=== PATIENT | male | born 1955 | race Asian ===

== ENCOUNTER 2019-06-30 13:40 | Outpatient (CLI) | payer OTHER, SELFPAY | END 2019-06-30 13:41 | disposition home or self-care (01) | DX: Z12.5 Encounter for screening for malignant neoplasm of prostate (principal) | CPT/HCPCS: 36415; 84153; G0103 ==

== ENCOUNTER 2019-10-20 15:40 | Outpatient (CLI) | payer MEDICARE, OTHER, SELFPAY ==
--- NOTE | 2019-10-20 | ECG_ITS ---
Measurements Intervals [place] Rate: 55 P: 67 CA: 158 QRS: 55 QRSD: 86 T: 12 QT: 398 QTc: 384 Interpretive Statements SINUS BRADYCARDIA BORDERLINE ECG Electronically Signed On 10-20-2019 16:54:32 CDT by Kj Killian D.O.
[2019-10-20 16:28] LABS: Albumin Level 4.6 g/dL (3.5-5.1); Estimated Glomerular Filt Rate > 60
== END 2019-10-20 15:41 | disposition home or self-care (01) ==
PROVIDERS: Visit Provider Orthopaedic Surgery
DX: M17.11 Unilateral primary osteoarthritis, right knee (principal); Z01.812 Encounter for preprocedural laboratory examination; R94.31 Abnormal electrocardiogram [ECG] [EKG]
CPT/HCPCS: 36415; 82040; 82565; 93005

== ENCOUNTER 2019-10-31 13:46 | Outpatient (CLI) | payer MEDICARE, OTHER, SELFPAY ==
[2019-10-31 15:07] LABS: Basophils Percent Auto 0.6 % (0.2-1.2); Eosinophils Absolute Auto 0.1 K/mm3 (0-0.3); Eosinophils Percent Auto 1.5 % (0-4.4); Hematocrit 44.2 % (42.0-52.0); Hemoglobin 14.7 g/dL (14.0-18.0); Immature Granulocyte Absolute 0.05 K/mm3 (0.00-0.031); Immature Granulocyte Percent A 0.7 % (0-0.5); Lymphocytes Absolute Auto 2.13 K/mm3 (0.9-3.2); Lymphocytes Percent Auto 29.3 % (18.3-44.2); Mean Corpuscular HGB Conc 33.3 g/dl (32-36); Mean Corpuscular Volume 90.2 fl (80-100); Mean Platelet Volume 9.2 fl (7.4-10.4); Monocytes Absolute Auto 0.6 K/mm3 (0.1-0.6); Monocytes Percent Auto 8.4 % (2.6-8.5); Neutrophils Absolute Auto 4.3 K/mm3 (1.3-6.7); Neutrophils Percent Auto 59.5 % (45.5-73.1); Platelet Count Result 310 k/mm3 (150-375); Red Cell Distribution Width 13.4 % (11.5-14.5); White Blood Count 7.3 K/mm3 (4.5-10.0)
[2019-10-31 15:18] LABS: Glucose 89 mg/dL (75-110)
[2019-10-31 15:26] LABS: Hemoglobin A1C 5.2 % (<5.7)
[2019-10-31 16:14] LABS: Urine Cotinine NEGATIVE
== END 2019-10-31 13:47 | disposition home or self-care (01) ==
PROVIDERS: Visit Provider Orthopaedic Surgery
DX: M17.12 Unilateral primary osteoarthritis, left knee (principal)
CPT/HCPCS: 36415; 80307; 82947; 83036; 85025; 87081

== ENCOUNTER 2019-11-11 00:33 | Outpatient (CLI) | payer MEDICARE, OTHER, SELFPAY ==
[2019-11-11 18:11] LABS: SARS-CoV-2 RNA PCR Negative
== END 2019-11-11 00:34 | disposition home or self-care (01) ==
LOC: ANHCOVIDDT 00:33
PROVIDERS: Visit Provider Orthopaedic Surgery
DX: Z01.812 Encounter for preprocedural laboratory examination (principal); Z11.59 Encounter for screening for other viral diseases
CPT/HCPCS: 87635; C9803; U0003

== ENCOUNTER 2019-11-14 01:53 | Day surgery (SDC) | payer MEDICARE, OTHER, SELFPAY ==
[2019-10-31 14:04] VITALS: BP 180/93; PULSE 57; RESP 16; TEMP 37; O2SAT 98; BMI 29.2
--- NOTE | 2019-10-31 15:09 | PC.NURSE ---
B/P 180/93 AND 187/99 NOTED. EKG AND MED HX REVIEWED WITH DR ROMERO. NO FURTHER ORDERS RECEIVED BUT WOULD LIKE PT TO CONTACT PCP FOR ELEVATED BP PRIOR TO SURGERY. PT INSTRUCTED TO CONTACT PCP, HE RELAYS UNDERSTANDING AND STATES HE WILL CALL [facility].
[2019-11-14] VITALS (17 sets, daily range): BP systolic 75–162; BP diastolic 50–90; PULSE 56–79; RESP 10–20; TEMP 36.2–36.6; O2SAT 97–100; BMI 28.9
--- NOTE | ~2019-11-14 | XR_ITS ---
EXAMINATION: XR knee LT 2V DATE: 11/14/2019 12:43 INDICATION: Total left knee arthroplasty. Postop. TECHNIQUE: 2 views of left knee were obtained. COMPARISON: Left knee radiographs 10/20/2019 FINDINGS: There is a total left knee arthroplasty with patellar resurfacing in near-anatomic alignmen t. No fracture. There is gas in the knee joint and soft tissues, consistent with recent surgery. IMPRESSION: 1. Total left knee arthroplasty in near-anatomic alignment. Reviewed, dictated and finalized at location B.
[2019-11-14] MEDS: ACETAMINOPHEN 500 MG TABLET 1000 MG PO (09:10)
[2019-11-14] MEDS: LACTATED RINGERS 1,000 ML 30 ML IV CONT ×4 (09:25→13:35)
[2019-11-14] MEDS: KETOROLAC 15 MG/ML VIAL (*BKC) IV PUSH (09:29)
[2019-11-14] MEDS: TRANEXAMIC ACID 1,000MG/ISO100 1,000 MG/100 ML BAG 200 MG IVPB (09:30)
--- NOTE | 2019-11-14 10:00 | WPDHPUPDATE1 ---
History and Physical Update Update Date/Time: 11/14/19 10:00 History and Physical has been reviewed, including an updated exam of the patient. There are NO changes in the patient's condition. Risks, benefits, and alternatives have been discussed and questions answered. Patient agrees to proceed with procedure.
--- NOTE | 2019-11-14 10:01 | WPDANESEPPF ---
Anes - Initial Pre Proc Eval Procedure: Operation Date: 11/14/19 11:00 Proposed Procedures p Left Total Knee Arthroplasty - Valentin Bell MD Date/Time: 11/14/19 10:01 Surgeon: Valentin Bell MD Pre Op Diagnosis: OA Left Knee Patient Data Age: 64 Gender: M Height: 5 ft 6 in Weight: 81.5 kg Last Vital Signs Temp 36.5 C 11/14/19 09:02 Pulse 60 11/14/19 09:02 Resp 16 11/14/19 09:02 BP 148/72 H 11/14/19 09:02 Pulse Ox 100 11/14/19 09:02 Allergies Allergy/AdvReac Type Severity Reaction Status Date / Time No Known Allergies Allergy Verified 10/31/19 14:03 Home Medications Medication Instructions Recorded Confirmed Type amlodipine 5 mg PO HS 10/31/19 10/31/19 History Patient hx anesthesia problems: post op nausea/vomiting Family hx anesthesia problems: none PMFSH Past Medical History Medical History HTN (hypertension) Surgical History Surgical History History of arthroscopy of left knee History of neck surgery History of prostate surgery (~2017) Social History Social History Smoking status: Never smoker Alcohol intake: current Substance use: never Living arrangements: with family Gender identity (if verbalized by the patient): Male Spiritual care concerns: No Anes - Eval Final PreProcedure Day of Procedure 11/14/19 10:01 Patient weight: overweight Heart: regular rate and rhythm Lungs: clear to auscultation Airway: Mallampati scale class II Neurological: alert and oriented Last oral intake: >/= 8 hours ASA classification: II Emergent: no Anesthetic plan: proceed Anesthesia type and monitoring: general LMA and standard monitoring Informed Consent: The patient's anesthetic plan and its attendant risks and benefits were discussed with the patient/family/POA. Questions were solicited and answers provided to the satisfaction of the patient/family/POA.
[2019-11-14] MEDS: SCOPOLAMINE 1.5 MG PATCH TRANSDERM (10:05)
--- NOTE | 2019-11-14 10:18 | WPDANESPNB ---
Anes - Peripheral Nerve Block Date/Time: 11/14/19 10:18 I have discussed with the patient/family/POA the placement of a peripheral nerve block for post-operative pain management, including associated risks, benefits, complications, and side effects. Alternative methods of post-operative analgesia were detailed. Questions were solicited and answers provided to the satisfaction of the patient/family/POA. Time-Out: A pre-procedural Time-Out was completed immediately before starting the procedure and confirmed: Patient Identification, Site, Procedure, Patient Position and the Availability of Requisite Equipment. Clinical Indications: Acute post-operative pain management requested by the operative surgeon. Nerve Block Insertion Note Anes-nerve block: adductor canal left Patient position: supine Skin prep: chlorhexidine Needle: 22 gauge, stimulating, insulated echogenic needle. Needle length: 80 mm Technique: ultrasound Technique comment: mid 2mg,[id number] Injectate: bupivacaine 0.5% with epi 5 mcg/ml (30ml) and dexamethasone (mg) (4) Observations: tolerated well Complications: none Procedure start time:: 1007 Procedure end time:: 1014
[2019-11-14] MEDS: ceFAZolin 2 GM/D5W 50 ML 2 GM/50 ML BAG IVPB (10:34)
--- NOTE | 2019-11-14 13:54 | SUR.PHASEI ---
[id number] sbar faxed floor notified
--- NOTE | 2019-11-14 14:50 | ADMGEN ---
This patient, Yahir Wei, was admitted to Medical Room 253-01. Patient/family oriented to hospital policies and general routines including ID bracelet, bed and alarms, visiting hours, pain management, procedures, bathroom and other care routines, personal items, smoking policy, room service/diet, and visiting hours. Valuables list has been completed. Information on how to activate the Rapid Response Team has been discussed. Patient/Family are encouraged to report perceived risks to care and to ask questions if they do not understand what they are told or what they should do.
--- NOTE | 2019-11-14 15:42 | PM.PROC ---
Procedure Note - Detailed Date of procedure: 11/14/19 Pre-op diagnosis: OA Left Knee Post-op diagnosis: same Procedure performed: Total knee arthroplasty, left Description of procedure: Bone quality excellent. The femur was downsized 1.5mm. 2 degrees external rotation after flexion gap check. Conservative distal femoral cut. A slight PCL release taken. A minimal medial release initially with a mild needle release at the final balance check. Implants: [place] [employer] size 5 press-fit femur, size 5 cemented low-profile tibia, 11 mm polyethylene insert, 35 mm asymmetric metal backed patellar component. Anesthesia: GETA and regional (subsartorial nerve block) Surgeon: Valentin Bell MD Estimated blood loss (mL): 100 Drains: No Complications: None Condition: stable Disposition: PACU Findings: OPERATIVE DETAILS: The patient was given a nerve block preoperatively, and then brought to the operating room. A general anesthetic was administered. The leg was prepped and draped in the usual sterile fashion. The limb was elevated and the tourniquet inflated to 300 mmHg during initial exposure, and cementation. A longitudinal incision was created along the medial border of the patella and patellar tendon, and a minimally invasive optimized mid-vastus approach to the knee was performed. A minimal medial release was taken. The knee was then flexed. The osteophytes were carefully removed. The intramedullary guide was placed in the femoral canal. The distal femoral resection was then taken with the oscillating saw. The collateral ligaments were carefully protected. The tibia was carefully exposed. The jig was applied, and the proximal tibia was resected according to preoperative plan. The knee was balanced in extension. Appropriate releases were taken where needed. The anterior cruciate ligament and meniscal remnants were removed. The posterior cruciate ligament was preserved. The patella was measured. Patellar resection was carried out with the oscillating saw. The lug holes drilled. The femur was sized and rotation assessed using a combination of gap balancing, posterior referencing, and the AP axis. The 4 in 1 cutting block was used to finish the femoral cuts after equal gaps were assured. The lug holes were drilled. The osteophytes were carefully removed from the back of the knee. The knee was copiously irrigated with antibiotic solution periodically throughout the procedure. The meniscal remnants were removed. The spacer block was used to confirm equal flexion and extension gaps. Further releases were performed as needed. The tibia was sized and broached. The bony surfaces were prepared for cementing with pulsatile lavage. The real tibial component was cemented into position followed by press fitting the femoral component. Excess cement was carefully removed. The patella component was press-fit. Patellar tracking was carefully assessed. No additional releases were required. The wound was closed with #1 Vycril suture, #2 Quill suture, 0-Quill suture, and 2-0 Quill suture followed by Steri-Strips. A sterile bulky dressing was applied. Meticulous hemostasis was maintained throughout the procedure. There were no complications. The patient was extubated and brought to the recovery room in stable condition after the application of sterile dressing with Klaus bandage.
[2019-11-14] MEDS: DOCUSATE SODIUM 100 MG CAPSULE PO (18:23)
[2019-11-14] MEDS: MELOXICAM 7.5 MG TABLET PO (18:23)
[2019-11-14] MEDS: ASPIRIN 81 MG ENTERIC TABLET PO (18:23)
[2019-11-14] MEDS: amLODIPine BESYLATE 5 MG TABLET PO (20:30)
[2019-11-15 02:00] VITALS: BP 136/73; PULSE 56; RESP 20; TEMP 36.7; O2SAT 98
[2019-11-15 05:22] LABS: Basophils Percent Auto 0.2 % (0.2-1.2); Hematocrit 35.5 % (42.0-52.0); Immature Granulocyte Absolute 0.06 K/mm3 (0.00-0.031); Immature Granulocyte Percent A 0.4 % (0-0.5); Lymphocytes Absolute Auto 1.18 K/mm3 (0.9-3.2); Lymphocytes Percent Auto 8.1 % (18.3-44.2); Mean Corpuscular HGB Conc 33.8 g/dl (32-36); Mean Corpuscular Hemoglobin 30.1 pg (26-34); Mean Platelet Volume 9.6 fl (7.4-10.4); Monocytes Absolute Auto 1.1 K/mm3 (0.1-0.6); Monocytes Percent Auto 7.3 % (2.6-8.5); Neutrophils Absolute Auto 12.2 K/mm3 (1.3-6.7); Platelet Count Result 237 k/mm3 (150-375); Red Blood Count 3.99 M/mm3 (4.6-6.20); Red Cell Distribution Width 13.2 % (11.5-14.5); White Blood Count 14.5 K/mm3 (4.5-10.0)
[2019-11-15 05:27] LABS: Anion Gap 6 mmol/L (8-16); Blood Urea Nitrogen 15 mg/dL (9-20); Calcium 8.3 mg/dL (8.4-10.2); Carbon Dioxide 26 mmol/L (22-30); Chloride 103 mmol/L (98-107); Estimated CRCL calculation 72 ml/min; Estimated Glomerular Filt Rate > 60; Glucose 125 mg/dL (75-110); Potassium 4.2 mmol/L (3.4-5.0); Sodium 135 mmol/L (137-145)
[2019-11-15 06:00] VITALS: BP 107/50; PULSE 61; RESP 20; TEMP 36.8; O2SAT 99
--- NOTE | 2019-11-15 08:17 | P.PNAN_ITS ---
Anes - Prog Note Post-Op Date/Time: 11/15/19 08:17 Cardiovascular status: normal Respiratory status: normal Airway patency: baseline Mental status: baseline Post-Op hydration status: normal Vital Signs: Last Vital Signs Temp 36.8 C 11/15/19 06:00 Pulse 61 11/15/19 06:00 Resp 20 11/15/19 06:00 BP 107/50 L 11/15/19 06:00 Pulse Ox 99 11/15/19 06:00 Pain Score (VAS): 0/10. Patient resting in bed at time of assessment, appears comfortable. PCT at bedside. I/O: Intake & Output 11/14/19 11/15/19 11/15/19 23:59 07:59 15:59 Intake Total 790 700 Output Total 600 1250 Balance 190 -550 Laboratory Tests 11/15/19 05:02 11/15/19 05:02 11/14/19 11/15/19 11/15/19 09:17 05:02 05:02 WBC 14.5 H RBC 3.99 L Hgb 12.0 L Hct 35.5 L MCV 89.0 MCH 30.1 MCHC 33.8 RDW 13.2 Plt Count 237 MPV 9.6 Immature Gran % (Auto) 0.4 Neut % (Auto) 84.0 H Lymph % (Auto) 8.1 L [place] % (Auto) 7.3 Eos % (Auto) 0.0 Baso % (Auto) 0.2 Lymph # (Auto) 1.18 [place] # (Auto) 1.1 H Eos # (Auto) 0.0 Baso # (Auto) 0.0 Abs Immat Gran (auto) 0.06 H Absolute Neuts (auto) 12.2 H Absolute Nucleated RBC 0.0 Nucleated RBC % 0.0 Sodium 135 L Potassium 4.2 Chloride 103 Carbon Dioxide 26 Anion Gap 6 L BUN 15 Creatinine 0.80 Estim Creat Clear Calc 72 Estimated GFR > 60 Glucose 125 H Calcium 8.3 L Blood Type B Positive Antibody Screen Negative Post-procedural complaints: none Patient Feedback: Patient satisfied with anesthetic care.
[2019-11-15] MEDS: DOCUSATE SODIUM 100 MG CAPSULE PO (09:02)
[2019-11-15] MEDS: ASPIRIN 81 MG ENTERIC TABLET PO (09:03)
[2019-11-15] MEDS: MELOXICAM 7.5 MG TABLET PO (09:03)
[2019-11-15 09:53] VITALS: BP 108/61; PULSE 60; RESP 16; TEMP 36.7; O2SAT 16
[2019-11-15 10:58] VITALS: O2SAT 94
--- NOTE | 2019-11-15 13:06 | P.DS_ITS ---
DS: Admitting Diagnosis Admitting Diagnosis Admitting Diagnosis: Unilateral primary osteoarthritis, left knee DS: Discharge Diagnosis Discharge Diagnosis (1) Status post total knee replacement, left: Code(s): Z96.652 - Presence of left artificial knee joint Status: Acute DS: Summary Hospital Course Reason for hospitalization: Total knee arthroplasty. Hospital Course: Tolerated surgery well. Progressed appropriately with therapy. Status at Discharge Functional status at discharge: uses cane/walker Time Spent with Patient Time attestation: Total time spent providing and/or coordinating discharge services: Exam Const: General: no acute distress Resp: Effort & Inspection: normal respiratory effort Skin: Other: Wound healing well. Mepilex dressing intact. No hematoma or drainage. Neuro: Motor exam (neuro): 5/5 motor strength present throughout Sensory Exam: normal sensation Psych: Mental Status: mental status grossly normal Speech and movement: Normal speech and movement present DS: Data Data Completed and Pending Labs on day of discharge: Labs from last 24 hours 11/15/19 11/15/19 05:02 05:02 WBC 14.5 H RBC 3.99 L Hgb 12.0 L Hct 35.5 L MCV 89.0 MCH 30.1 MCHC 33.8 RDW 13.2 Plt Count 237 MPV 9.6 Immature Gran % (Auto) 0.4 Neut % (Auto) 84.0 H Lymph % (Auto) 8.1 L [place] % (Auto) 7.3 Eos % (Auto) 0.0 Baso % (Auto) 0.2 Lymph # (Auto) 1.18 [place] # (Auto) 1.1 H Eos # (Auto) 0.0 Baso # (Auto) 0.0 Abs Immat Gran (auto) 0.06 H Absolute Neuts (auto) 12.2 H Absolute Nucleated RBC 0.0 Nucleated RBC % 0.0 Sodium 135 L Potassium 4.2 Chloride 103 Carbon Dioxide 26 Anion Gap 6 L BUN 15 Creatinine 0.80 Estim Creat Clear Calc 72 Estimated GFR > 60 Glucose 125 H Calcium 8.3 L Discharge Plan Discharge Patient Disposition: Home, Self-Care Discharge Instructions: * See instruction sheet * Remove the Scopolamine patch that was placed behind your ear in 72 hours or less. Wash your hands after touching. Patient Instructions: Pain Management (DC), Joint Replacement Surgery (DC), Knee Replacement (DC) Stand Alone Forms: General Discharge Instructions Follow-up/Referrals: Valentin Bell MD [Physician] - Discharge Medications: New aspirin [Enteric Coated Aspirin] 81 mg tablet,delayed release (DR/EC) 81 mg PO DAILY Qty: 28 RF: 0 oxycodone-acetaminophen 5-325 mg tablet 1 - 2 tablet PO Q4-6H MDD 8 tablets PRN (Reason: pain) Qty: 30 RF: 0 Continued amlodipine 5 mg tablet 5 mg PO HS RF: 0 Quality VTE Prophylaxis VTE prophylaxis: mechanical ordered (STANLEY begum and Tay)
== END 2019-11-15 14:25 | disposition home or self-care (01) ==
LOC: ANHSURGERY 10:12 → ANH2MED 14:39
PROVIDERS: Visit Provider Orthopaedic Surgery
PROC: (CPT 27447; principal; 2019-11-14 11:00)
DX: M17.12 Unilateral primary osteoarthritis, left knee (principal); G89.18 Other acute postprocedural pain; I10 Essential (primary) hypertension
CPT/HCPCS: 27447; 64447; 36415; 73560; 80048; 85025; 86850; 86900; 86901; 97110; 97116; 97161; 97165; A9270; C1713; C1776; J0171; J0690; J1100; J1885; J2250; J2270; J2405; J2704; J2795; J7120

== ENCOUNTER 2020-08-30 09:25 | Emergency (ER) | payer MEDICARE, OTHER, SELFPAY ==
[2020-08-30] VITALS (10 sets, daily range): BP systolic 135–176; BP diastolic 76–112; PULSE 57–82; RESP 12–18; TEMP 36.6; O2SAT 98–100
--- NOTE | ~2020-08-30 | CT_ITS ---
EXAMINATION: CT abdomen pelvis wo con DATE: 08/30/2020 10:34 INDICATION: Left flank pain and kidney stones. TECHNIQUE: Computed tomography (CT) of the abdomen and pelvis was performed without intravenous contr ast. Automated exposure control and iterative reconstruction technique were employed. The dose-length product was 201.81 mGy-cm. COMPARISON: None FINDINGS: Minimal dependent atelectasis in the bilateral lower lobes. Mild cardiomegaly. 1.7 cm cyst in the lef t hepatic lobe. Gallbladder, spleen, pancreas and right adrenal gland are normal. 1 cm left adrenal n odule statistically most likely to represent an adenoma. Right kidney is normal. 2 mm nonobstructing stone in a lower pole calyx of the left kidney. There is a 3 mm stone in the bladder which is near but appearing slightly caudal to the right ureterovesicular junction. There is no right-sided hydronephrosis or inflammatory stranding along the right ureter ho wever there is mild inflammatory stranding along the left ureter suggesting this could represent a re cently passed left [place] now mobile within the bladder. Bowels are normal with no obstruction. The appendix is not visualized. No pericecal inflammatory gomez ge to suggest acute appendicitis. Small fat-containing umbilical hernia.. No free intraperitoneal gas or fluid. No pathologically enlarged abdominal or pelvic lymphadenopathy. Mild thoracolumbar dextroc urvature with moderate lower thoracic and moderate lumbosacral spondylosis. Mild chronic appearing li cristiane physiologic anterior wedging at T12 and L1. IMPRESSION: 1. 3 mm stone in the bladder near but not definitively associated with the right ureterovesicular delmar ction with inflammatory stranding along the left ureter and clinical history of left flank pain sugge sting this likely represents a recently passed left ureteral stone. Correlate for improvement in repo rted left flank pain. 2. Additional nonobstructing 2 mm stone at a lower pole calyx of the left kidney. Reviewed, dictated and finalized at location A. IMPRESSION: 1. 3 mm stone in the bladder near but not definitively associated with the righ t ureterovesicular junction with inflammatory stranding along the left ureter a nd clinical history of left flank pain suggesting this likely represents a rece ntly passed left ureteral stone. Correlate for improvement in reported left fla nk pain. 2. Additional nonobstructing 2 mm stone at a lower pole calyx of the left kidne y.
[2020-08-30 09:49] LABS: Basophils Percent Auto 0.5 % (0.2-1.2); Eosinophils Absolute Auto 0.1 K/mm3 (0-0.3); Eosinophils Percent Auto 1.5 % (0-4.4); Hematocrit 42.6 % (42.0-52.0); Hemoglobin 14.3 g/dL (14.0-18.0); Immature Granulocyte Absolute 0.03 K/mm3 (0.00-0.031); Immature Granulocyte Percent A 0.3 % (0-0.5); Lymphocytes Absolute Auto 2.88 K/mm3 (0.9-3.2); Lymphocytes Percent Auto 32.5 % (18.3-44.2); Mean Corpuscular HGB Conc 33.6 g/dl (32-36); Mean Corpuscular Hemoglobin 29.4 pg (26-34); Mean Corpuscular Volume 87.7 fl (80-100); Mean Platelet Volume 9.3 fl (7.4-10.4); Monocytes Absolute Auto 0.7 K/mm3 (0.1-0.6); Monocytes Percent Auto 7.7 % (2.6-8.5); Neutrophils Absolute Auto 5.1 K/mm3 (1.3-6.7); Neutrophils Percent Auto 57.5 % (45.5-73.1); Platelet Count Result 305 k/mm3 (150-375); Red Blood Count 4.86 M/mm3 (4.6-6.20); Red Cell Distribution Width 13.3 % (11.5-14.5); White Blood Count 8.9 K/mm3 (4.5-10.0)
[2020-08-30 09:59] LABS: Anion Gap 10 mmol/L (8-16); Blood Urea Nitrogen 17 mg/dL (9-20); Calcium 9.5 mg/dL (8.4-10.2); Carbon Dioxide 25 mmol/L (22-30); Chloride 106 mmol/L (98-107); Estimated CRCL calculation 58 ml/min; Estimated Glomerular Filt Rate > 60; Glucose 144 mg/dL (75-110); Potassium 3.3 mmol/L (3.4-5.0); Sodium 141 mmol/L (137-145)
[2020-08-30 10:11] LABS: Add Urine Microscopic? YES; Appearance Urine Clear (Clear); Bilirubin Urine Negative (Negative); Blood Urine 2+ (Negative); Color Urine Yellow (Yellow); Glucose Urine UA Negative (Negative); Ketones Urine Trace mg/dL (Negative); Leukocyte Esterase Ur Trace LEU/UL (Negative); Mucus Urine Few /lpf; Nitrate Urine Negative (Negative); Protein Urine 2+ mg/dL (Negative); Specific Grav Ur 1.025 (1.001-1.035); Squamous Epithelial Cell Urine Rare /hpf (Few)
--- NOTE | 2020-08-30 10:11 | ED.ABDPAIN ---
HPI - Abdominal Pain General Chief Complaint: Abdominal Pain Stated Complaint: L Flank Pain Time Seen by Provider: 08/30/20 10:11 Source: patient, family and RN notes reviewed Limitations: no limitations History of Present Illness HPI narrative: Patient presents with sudden onset of left flank pain radiating to left lower quadrant started prior to arrival to the emergency room. No history of kidney stone. Patient denies any fever, chills, chest pain, shortness of breath or back pain. Related Data Home Medications Medication Instructions Recorded Confirmed amlodipine 5 mg PO HS 10/31/19 11/14/19 Allergies Allergy/AdvReac Type Severity Reaction Status Date / Time No Known Allergies Allergy Verified 11/14/19 10:14 Review of Systems Review of Systems: Narrative: CONSTITUTIONAL: Denies fever, chills, or sweats. EYES: Denies visual changes, redness, or discharge. ENT: Denies rhinorrhea, congestion, sore throat, or otalgia. CARDIOVASCULAR: Denies chest pain, palpitations, or edema. RESPIRATORY: Denies cough or dyspnea. GASTROINTESTINAL: Denies abdominal pain, nausea, vomiting, or diarrhea. GENITOURINARY: Denies dysuria or hematuria. SKIN: Denies rash or itching. MUSCULOSKELETAL: Denies back pain, joint pain, or myalgia. NEUROLOGIC: Denies headache, numbness, or weakness. PSYCHIATRIC: Denies anxiety or depression. PMFSH Past Medical History Medical History HTN (hypertension) Surgical History Surgical History History of arthroscopy of left knee History of neck surgery History of prostate surgery (~2018) Status post total knee replacement, left Social History Social History Smoking status: Never smoker Alcohol intake: never Substance use: never Gender identity (if verbalized by the patient): Male Spiritual care concerns: No Exam Narrative: Exam Narrative: General appearance: Well-developed, well-nourished, in severe pain, restless Skin: Normal color Head: Normocephalic, nontraumatic Eyes: Clear conjunctiva ENT: Oropharynx normal, ears normal, nose normal Neck: Supple, nontender Chest and respiratory: Airway patent, no respiratory distress, no accessory muscle use Heart: Regular rate/rhythm Abdomen: Soft, moderate tenderness left flank, and left lower quadrant, no guarding or rebound, no organomegaly, quiet bowel sounds Vascular: Normal peripheral pulses, normal capillary refill. Musculoskeletal: Normal range of motion, nontender back Neurologic: Alert and oriented ?3, [employer] is normal as tested, no gross motor deficit Course Course Emergency Course: Stable Vital Signs Vital signs: Vital Signs Temperature 36.6 C 08/30/20 09:28 Pulse Rate 82 08/30/20 09:28 Respiratory Rate 14 08/30/20 09:28 Blood Pressure 171/92 H 08/30/20 09:28 Pulse Oximetry 99 08/30/20 09:28 Temperature 36.6 C 08/30/20 09:28 Pulse Rate 70 08/30/20 11:31 Respiratory Rate 12 08/30/20 11:31 Blood Pressure 135/76 08/30/20 11:30 Pulse Oximetry 98 08/30/20 11:31 MDM - Abdominal Pain MDM Narrative Medical decision making narrative: Kidney stone is my concern. Labs, CT abdomen pelvis without contrast, IV fluid, IV Dilaudid and Zofran ordered. Further plan to follow Differential Diagnosis Differential diagnosis: Likely calculus of kidney, small bowel obstruction and other (Aortic dissection) Lab Data Result diagrams: 08/30/20 09:33 08/30/20 09:33 Labs: Lab Results 08/30/20 08/30/20 08/30/20 Range/Units 09:33 09:33 09:56 WBC
[2020-08-30] MEDS: HYDROmorphone HCL INJ (*CRX) 1 MG/ML SYR 0.5 MG IV PUSH (10:22)
[2020-08-30] MEDS: ONDANSETRON INJ 4 MG/2 ML VIAL IV PUSH (10:23)
== END 2020-08-30 12:38 | disposition home or self-care (01) ==
PROVIDERS: Emergency Provider Emergency Medicine
DX: N20.0 Calculus of kidney (principal); I10 Essential (primary) hypertension; Z96.652 Presence of left artificial knee joint
CPT/HCPCS: 36415; 74176; 80048; 81001; 85025; 96374; 96375; 99284; J1170; J2405

== ENCOUNTER 2020-10-01 13:43 | Emergency (ER) | payer MEDICARE, OTHER, SELFPAY ==
[2020-10-01 13:51] VITALS: BP 162/77; PULSE 84; RESP 18; TEMP 36.9; O2SAT 100
--- NOTE | 2020-10-01 13:57 | ED.GENADULT ---
HPI - General Adult General Chief complaint: Skin/Abscess/Foreign Body Stated complaint: insect bite Time Seen by Provider: 10/01/20 13:57 Source: patient and RN notes reviewed Mode of arrival: ambulatory Limitations: no limitations History of Present Illness HPI narrative: 65-year-old male presents with complaints of raised, red, tenderness, and itching rash to the left side for the past 6 days. Yahir reports outside putting up hay in a barn, believes he was bitten by an insect, now has increasing redness and swelling over the past 24 hours. No treatment. Denies drainage. Denies new detergent, personal hygiene products or laundry detergents. No new foods or medications. No swelling, burning, or. bleeding. Denies fever, headaches, weakness, fatigue, myalgia, facial swelling, or tongue swelling. Denies dyspnea. Remains active. Tolerating p.o. intake. The patient reports he has not been diagnosed with COVID-19. The patient reports he is not waiting for the results of a COVID-19 lab test. The patient reports he does not have fever, chills, or weakness. The patient reports he does not have a new or worsening cough or shortness of breath. Denies chest pain. The patient reports he does not have any rhinorrhea, congestion, sore throat, loss of taste, nausea, vomiting, abdominal pain, and diarrhea. Denies recent traveling. Denies concerns for COVID-19 or exposures. At this time, the patient is not suspected of having COVID-19. Some parts of this dictation were generated by voice recognition software and may contain typographical and/or grammatical inaccuracies. Related Data Home Medications Medication Instructions Recorded Confirmed amlodipine 5 mg PO HS 10/31/19 10/01/20 Allergies Allergy/AdvReac Type Severity Reaction Status Date / Time No Known Allergies Allergy Verified 11/14/19 10:14 Review of Systems Review of Systems: Narrative: CONSTITUTIONAL: Denies fever, chills, sweats. EYES: Denies visual changes, redness, discharge. ENT: Denies otalgia, rhinorrhea, congestion, sore throat. CARDIOVASCULAR: Denies chest pain, palpitations, edema. RESPIRATORY: Denies dyspnea, wheezing, cough. GASTROINTESTINAL: Denies abdominal pain, nausea, vomiting, diarrhea. SKIN: Complains of raised, red, tenderness, and itching rash to the left side. Denies drainage. MUSCULOSKELETAL: Denies acute back pain, joint pain, or myalgia. NEUROLOGIC: Denies numbness or focal weakness. PSYCHIATRIC: Denies anxiety or depression. All systems reviewed & are unremarkable except as noted in HPI and below. [facility] Past Medical History Medical History HTN (hypertension) Surgical History Surgical History History of arthroscopy of left knee History of neck surgery History of prostate surgery (~2018) Status post total knee replacement, left Family History Family History (Updated 10/01/20 @ 14:25 by LUCA Hong) Father Unknown family medical history Mother Unknown family medical history Other Adopted Social History Social History (Updated 10/01/20 @ 14:25 by LUCA Hong) Smoking status: Never smoker Tobacco type: cigarettes Second hand tobacco smoke exposure: No Alcohol intake: current Substance use: never Substance use type: does not use Gender identity (if verbalized by the patient): Male Spiritual care concerns: No Comments At time of signature, agree with the nurse past medical, surgical, social, and family history. There is no relevant family history pertinent to the presenting complaint. Exam Narrative: Exam Narrative: GENERAL: This is a well-nourished, well-developed patient, in no apparent distress. Talks in full sentences and ambulates with steady gait without dyspnea. HEAD: Normocephalic, atraumatic. EYES: PERRL. Sclera clear/white. Vision
[2020-10-01 14:23] VITALS: BP 152/72
== END 2020-10-01 14:24 | disposition home or self-care (01) ==
PROVIDERS: Emergency Provider Nurse Practitioner Family
DX: L03.313 Cellulitis of chest wall (principal); S20.362A Insect bite (nonvenomous) of left front wall of thorax, initial encounter; W57.XXXA Bitten or stung by nonvenomous insect and other nonvenomous arthropods, initial encounter; I10 Essential (primary) hypertension; Z96.652 Presence of left artificial knee joint
CPT/HCPCS: 99213; G0463

== ENCOUNTER 2020-10-10 08:01 | Outpatient (CLI) | payer MEDICARE, OTHER, SELFPAY ==
[2020-10-10 08:57] LABS: Basophils Absolute Auto 0.1 K/mm3 (0.0-0.1); Basophils Percent Auto 1.4 % (0.2-1.2); Eosinophils Absolute Auto 0.2 K/mm3 (0-0.3); Eosinophils Percent Auto 5.2 % (0-4.4); Hematocrit 39.6 % (42.0-52.0); Immature Granulocyte Absolute 0.02 K/mm3 (0.00-0.031); Immature Granulocyte Percent A 0.5 % (0-0.5); Mean Corpuscular HGB Conc 32.8 g/dl (32-36); Mean Corpuscular Volume 88.2 fl (80-100); Mean Platelet Volume 9.1 fl (7.4-10.4); Monocytes Absolute Auto 0.4 K/mm3 (0.1-0.6); Neutrophils Absolute Auto 1.8 K/mm3 (1.3-6.7); Neutrophils Percent Auto 39.9 % (45.5-73.1); Platelet Count Result 247 k/mm3 (150-375); Red Blood Count 4.49 M/mm3 (4.6-6.20); Red Cell Distribution Width 13.8 % (11.5-14.5); White Blood Count 4.4 K/mm3 (4.5-10.0)
[2020-10-10 09:09] LABS: Add Urine Microscopic? YES; Appearance Urine Clear (Clear); Bilirubin Urine Negative (Negative); Blood Urine 1+ (Negative); Color Urine Yellow (Yellow); Glucose Urine UA Negative (Negative); Ketones Urine Negative (Negative); Leukocyte Esterase Ur Negative LEU/UL (NEGATIVE); Mucus Urine Heavy /lpf; Nitrate Urine Negative (Negative); Protein Urine Negative (Negative); RBC Urine 0-2 /hpf (0-2); Squamous Epithelial Cell Urine Rare /hpf (Few); Urobilinogen Urine Negative mg/dL (<2.0); WBC Urine 0-3 /hpf (0-3)
[2020-10-10 09:29] LABS: LDL Cholesterol Direct 69 mg/dL
[2020-10-10 09:44] LABS: Alanine Aminotransferase 19 U/L (4-50); Albumin Level 4.3 g/dL (3.5-5.1); Alkaline Phosphatase 41 U/L (38-126); Anion Gap 9 mmol/L (8-16); Aspartate Amino Transferase 32 U/L (17-59); Bilirubin,Total 0.5 mg/dL (0.2-1.3); Blood Urea Nitrogen 21 mg/dL (9-20); Calcium 8.9 mg/dL (8.4-10.2); Carbon Dioxide 25 mmol/L (22-30); Chloride 107 mmol/L (98-107); Cholesterol 177 mg/dL (0-200); Estimated Glomerular Filt Rate > 60; Glucose 97 mg/dL (75-110); HDL Direct 35 mg/dL; Potassium 4.5 mmol/L (3.4-5.0); Sodium 141 mmol/L (137-145); Triglycerides 172 mg/dL (<150)
== END 2020-10-10 08:02 | disposition home or self-care (01) ==
LOC: ANHLAB 08:03
PROVIDERS: PCP Nurse Practitioner Family; Visit Provider Nurse Practitioner Family
DX: I10 Essential (primary) hypertension (principal)
CPT/HCPCS: 36415; 80048; 80061; 80076; 81001; 82607; 82746; 84443; 85025

== ENCOUNTER 2021-04-21 14:10 | Outpatient (CLI) | payer MEDICARE, OTHER, SELFPAY ==
--- NOTE | ~2021-04-21 | XR_ITS ---
EXAMINATION: XR shoulder LT min 2V DATE: 04/21/2021 15:16 INDICATION: Left shoulder pain. TECHNIQUE: 4 views of left shoulder were obtained. COMPARISON: None. FINDINGS: Bone alignment is normal. No fracture. Glenohumeral joint is normal. There is severe acromi oclavicular joint osteoarthritis. IMPRESSION: 1. Severe acromioclavicular joint osteoarthritis. Reviewed, dictated and finalized at location A. [employer]GER
[2021-04-21 14:49] LABS: Basophils Absolute Auto 0.1 K/mm3 (0.0-0.1); Basophils Percent Auto 0.6 % (0.2-1.2); Eosinophils Absolute Auto 0.1 K/mm3 (0-0.3); Eosinophils Percent Auto 0.6 % (0-4.4); Hematocrit 41.3 % (42.0-52.0); Hemoglobin 13.8 g/dL (14.0-18.0); Immature Granulocyte Absolute 0.05 K/mm3 (0.00-0.031); Immature Granulocyte Percent A 0.4 % (0-0.5); Lymphocytes Absolute Auto 1.81 K/mm3 (0.9-3.2); Lymphocytes Percent Auto 14.9 % (18.3-44.2); Mean Corpuscular HGB Conc 33.4 g/dl (32-36); Mean Corpuscular Hemoglobin 29.9 pg (26-34); Mean Corpuscular Volume 89.4 fl (80-100); Mean Platelet Volume 9.3 fl (7.4-10.4); Monocytes Absolute Auto 0.5 K/mm3 (0.1-0.6); Neutrophils Absolute Auto 9.7 K/mm3 (1.3-6.7); Neutrophils Percent Auto 79.5 % (45.5-73.1); Platelet Count Result 271 k/mm3 (150-375); Red Blood Count 4.62 M/mm3 (4.6-6.20); Red Cell Distribution Width 13.2 % (11.5-14.5); White Blood Count 12.2 K/mm3 (4.5-10.0)
[2021-04-21 14:51] LABS: Add Urine Microscopic? NO; Appearance Urine Clear (Clear); Bilirubin Urine Negative (Negative); Blood Urine Negative (Negative); Color Urine Yellow (Yellow); Glucose Urine UA Negative (Negative); Ketones Urine Negative (Negative); Leukocyte Esterase Ur Negative LEU/UL (NEGATIVE); Nitrate Urine Negative (Negative); Protein Urine Negative (Negative); Specific Grav Ur 1.014 (1.001-1.035); Urobilinogen Urine Negative mg/dL (<2.0)
[2021-04-21 19:29] LABS: Iron 81 ug/dL (49-181)
[2021-04-21 19:43] LABS: Percent Iron Saturation 25 % (20-50)
== END 2021-04-21 14:11 | disposition home or self-care (01) ==
LOC: ANHLAB 14:14
PROVIDERS: PCP Nurse Practitioner Family; Visit Provider Nurse Practitioner Family
DX: D64.9 Anemia, unspecified (principal); R31.9 Hematuria, unspecified; M19.012 Primary osteoarthritis, left shoulder
CPT/HCPCS: 36415; 73030; 81003; 83540; 83550; 85025

== ENCOUNTER → 2021-09-23 15:21 | Outpatient (CLI) | payer MEDICARE, OTHER, SELFPAY ==
--- NOTE | ~2021-09-23 | MR_ITS ---
EXAMINATION: MR shoulder LT wo con DATE: 09/23/2021 16:23 INDICATION: Left shoulder pain TECHNIQUE: Magnetic resonance imaging (MRI) of the left shoulder was performed without intravenous co ntrast. Sequences included axial PD-weighted FS FSE, coronal oblique PD-weighted FS FSE, coronal obli que T2-weighted FS FSE, sagittal PD-weighted FS FSE, and sagittal T1-weighted SE. COMPARISON: None. FINDINGS: Coracoacromial arch: The acromion undersurface is curved in morphology (type II). The coracoacromial ligament is normal. M oderate acromioclavicular osteoarthritis. Rotator cuff: Mild supraspinatus and infraspinatus tendinopathy without tear. The subscapularis and teres minor ten dons are normal. Normal rotator cuff muscle bulk and signal. Biceps tendon, glenoid labrum and glenohumeral cartilage: Long head of the biceps tendon is normal. As a linear tear extending across the base of the 5:00-7:00 position of the inferior glenoid labrum. Partial-thickness glenoid cartilage loss with some scattere d chondral surface irregularity. Additional partial thickness cartilage loss and small amount of kathleen dral surface irregularity along the inferomedial aspect of the humeral head. Partial-thickness cartil age loss with smooth chondral surface along the posterior superior aspect of the humeral head. Fluid: Small glenohumeral joint effusion with mild synovitis at the axillary recess. Proportional extension of a small amount of fluid along with mild synovitis in the long head biceps tendon sheath. No loose osteochondral bodies. No abnormal fluid signal in the subacromial/subdeltoid bursa consistent to sug gest bursitis. Bones/other: Normal marrow signal with no edema, fracture or pathologic marrow replacing process. There is some ca psular thickening at the axillary recess along with thickened soft tissue at the rotator cuff interva l replacing the normal fat signal, both findings which can be seen in the setting of adhesive capsuli tis which is a clinical diagnosis. IMPRESSION: 1. Mild glenohumeral osteoarthritis with tear of the inferior glenoid labrum. 2. Moderate acromioclavicular osteoarthritis. 3. Small left glenohumeral joint effusion 4. Thickened joint capsule at the axillary recess and thickened soft tissue at the rotator cuff inter sara both findings which can be seen with adhesive capsulitis which is a clinical diagnosis. Reviewed, dictated and finalized at location B. IMPRESSION: 1. Mild glenohumeral osteoarthritis with tear of the inferior glenoid labrum. 2. Moderate acromioclavicular osteoarthritis. 3. Small left glenohumeral joint effusion 4. Thickened joint capsule at the axillary recess and thickened soft tissue at the rotator cuff interval both findings which can be seen with adhesive capsuli tis which is a clinical diagnosis.
== END ==
PROVIDERS: PCP Nurse Practitioner Family; Visit Provider Orthopaedic Surgery
DX: M19.012 Primary osteoarthritis, left shoulder (principal); M25.412 Effusion, left shoulder
CPT/HCPCS: 73221

== ENCOUNTER 2021-10-24 07:01 | Outpatient (CLI) | payer MEDICARE, OTHER, SELFPAY ==
[2021-10-24 07:38] LABS: Basophils Absolute Auto 0.1 K/mm3 (0.0-0.1); Eosinophils Absolute Auto 0.2 K/mm3 (0-0.3); Eosinophils Percent Auto 3.6 % (0-4.4); Hematocrit 41.7 % (42.0-52.0); Hemoglobin 13.7 g/dL (14.0-18.0); Immature Granulocyte Absolute 0.01 K/mm3 (0.00-0.031); Immature Granulocyte Percent A 0.2 % (0-0.5); Lymphocytes Absolute Auto 1.88 K/mm3 (0.9-3.2); Mean Corpuscular HGB Conc 32.9 g/dl (32-36); Mean Corpuscular Hemoglobin 29.8 pg (26-34); Mean Corpuscular Volume 90.7 fl (80-100); Monocytes Absolute Auto 0.5 K/mm3 (0.1-0.6); Monocytes Percent Auto 8.6 % (2.6-8.5); Neutrophils Absolute Auto 3.4 K/mm3 (1.3-6.7); Neutrophils Percent Auto 55.6 % (45.5-73.1); Platelet Count Result 275 k/mm3 (150-375); Red Cell Distribution Width 13.5 % (11.5-14.5); White Blood Count 6.1 K/mm3 (4.5-10.0)
[2021-10-24 07:39] LABS: Add Urine Microscopic? YES; Appearance Urine Clear (Clear); Bilirubin Urine Negative (Negative); Blood Urine Trace-Intact (Negative); Color Urine Yellow (Yellow); Glucose Urine UA Negative (Negative); Ketones Urine Negative (Negative); Leukocyte Esterase Ur Negative LEU/UL (NEGATIVE); Nitrate Urine Negative (Negative); Protein Urine Negative (Negative); Specific Grav Ur 1.025 (1.001-1.035); Urobilinogen Urine 0.2 mg/dL (<2.0); pH Urine 6.5 (5.0-9.0)
[2021-10-24 07:54] LABS: Alanine Aminotransferase 14 U/L (6-50); Albumin Level 4.2 g/dL (3.5-5.1); Alkaline Phosphatase 38 U/L (38-126); Anion Gap 5 mmol/L (8-16); Aspartate Amino Transferase 21 U/L (17-59); Bilirubin,Total 0.6 mg/dL (0.2-1.3); Blood Urea Nitrogen 15 mg/dL (9-20); Calcium 8.8 mg/dL (8.4-10.2); Carbon Dioxide 26 mmol/L (22-30); Chloride 107 mmol/L (98-107); Cholesterol 202 mg/dL (0-200); Estimated Glomerular Filt Rate > 60; Glucose 91 mg/dL (65-110); HDL Direct 50 mg/dL; Potassium 3.9 mmol/L (3.4-5.0); Sodium 138 mmol/L (137-145); Triglycerides 121 mg/dL (<150)
[2021-10-24 07:58] LABS: Mucus Urine Rare /lpf; Squamous Epithelial Cell Urine Rare /hpf (Few); WBC Urine 0-3 /hpf (0-3)
[2021-10-24 08:05] LABS: LDL Cholesterol Direct 90 mg/dL
[2021-10-24 08:17] LABS: Iron 110 ug/dL (49-181)
[2021-10-24 08:28] LABS: Percent Iron Saturation 36 % (20-50)
== END 2021-10-24 07:02 | disposition home or self-care (01) ==
LOC: ANHLAB 07:04
PROVIDERS: PCP Nurse Practitioner Family; Visit Provider Nurse Practitioner Family
DX: E78.5 Hyperlipidemia, unspecified (principal); D64.9 Anemia, unspecified; I10 Essential (primary) hypertension
CPT/HCPCS: 36415; 80048; 80061; 80076; 81001; 83540; 83550; 84443; 85025

== ENCOUNTER 2021-11-10 00:25 | Day surgery (SDC) | payer MEDICARE, OTHER, SELFPAY ==
[2021-11-03 10:28] VITALS: BMI 27.4
--- NOTE | 2021-11-09 17:33 | PM.HPGS ---
History of Present Illness History of Present Illness Consent: Risks, benefits, and alternatives have been discussed and questions answered. Patient agrees to proceed with procedure. Chief complaint: neoplasm screening Narrative: Yahir Wei is a 66 year old male referred for colon cancer screening. Review of Systems Review of Systems: All systems reviewed & are unremarkable except as noted in HPI and below PMFSH Past Medical History Medical History Anemia BMI 28.0-28.9,adult BPH (benign prostatic hyperplasia) Encounter to establish care Hematuria HTN (hypertension) Hyperlipidemia Left shoulder pain Surgical History Surgical History History of arthroscopy of left knee History of neck surgery History of prostate surgery (~2018) Status post total knee replacement, left Family History Family History Father Unknown family medical history Mother Unknown family medical history Other Adopted Social History Social History Smoking status: Never smoker Second hand tobacco smoke exposure: No Alcohol intake: current Alcohol use details: occasional glass of wine Substance use: never Substance use type: does not use Living arrangements: with family Gender identity (if verbalized by the patient): Male Sexual Orientation (if Verbalized by the Patient): Straight or Heterosexual Spiritual care concerns: No Meds Home Medications and Allergies Home Medications Medication Instructions Recorded Confirmed Type amlodipine 5 mg tablet 5 mg PO HS #90 tabs 10/23/21 11/10/21 Rx Allergies Allergy/AdvReac Type Severity Reaction Status Date / Time No Known Allergies Allergy Verified 11/10/21 07:37 Exam Resp: Auscultation: clear to auscultation bilaterally Cardio: Rate: regular rate Rhythm: regular rhythm GI: GI Palp: Yes Soft to palpation and No Tenderness to palpation present (GI) Assessment and Plan Assessment and plan (1) Colon cancer screening: Code(s): Z12.11 - Encounter for screening for malignant neoplasm of colon Status: Acute Assessment and Plan: Colonoscopy with possible biopsy or polypectomy or cautery or injection of substances.
[2021-11-10 07:38] VITALS: BP 148/86; PULSE 56; RESP 16; TEMP 36.3; O2SAT 100; BMI 28.7
[2021-11-10] MEDS: LACTATED RINGERS 1,000 ML 150 ML IV CONT (07:50)
--- NOTE | 2021-11-10 08:24 | P.PNAN_ITS ---
Anes - Initial Pre Proc Eval Procedure: Operation Date: 11/10/21 08:30 Proposed Procedures p Screening Colonoscopy - Mustapha Browne MD Date/Time: 11/10/21 08:24 Surgeon: Mustapha Browne MD Pre Op Diagnosis: neoplasm screening Patient Data Age: 66 Gender: M Height: 1.68 m Weight: 80.8 kg Last Vital Signs Temp 97.4 F L 11/10/21 07:38 Pulse 56 L 11/10/21 07:38 Resp 16 11/10/21 07:38 BP 148/86 H 11/10/21 07:38 Pulse Ox 100 11/10/21 07:38 O2 Del Method Room Air 11/10/21 07:38 Allergies Allergy/AdvReac Type Severity Reaction Status Date / Time No Known Allergies Allergy Verified 11/10/21 07:37 Home Medications Medication Instructions Recorded Confirmed Type amlodipine 5 mg tablet 5 mg PO HS #90 tabs 10/23/21 11/10/21 Rx Patient hx anesthesia problems: none Family hx anesthesia problems: none Results Review: All pre-operative results and documents have been reviewed as part of the pre- operative evaluation. [facility] Past Medical History Medical History (Updated 11/09/21 @ 17:34 by Msutapha Browne MD) Anemia BMI 28.0-28.9,adult BPH (benign prostatic hyperplasia) Encounter to establish care Hematuria HTN (hypertension) Hyperlipidemia Left shoulder pain Surgical History Surgical History History of arthroscopy of left knee History of neck surgery History of prostate surgery (~2018) Status post total knee replacement, left Family History Family History Father Unknown family medical history Mother Unknown family medical history Other Adopted Social History Social History Smoking status: Never smoker Second hand tobacco smoke exposure: No Alcohol intake: current Alcohol use details: occasional glass of wine Substance use: never Substance use type: does not use Living arrangements: with family Gender identity (if verbalized by the patient): Male Sexual Orientation (if Verbalized by the Patient): Straight or Heterosexual Spiritual care concerns: No Anes - Eval Final PreProcedure Day of Procedure 11/10/21 08:24 Patient weight: normal Heart: regular rate and rhythm Lungs: clear to auscultation Airway: Mallampati scale class II Neurological: alert and oriented Last oral intake: >/= 8 hours ASA classification: II Emergent: no Anesthetic plan: proceed Anesthesia type and monitoring: general GIVS and standard monitoring Results Review: All pre-operative results and documents have been reviewed as part of the pre- operative evaluation. Informed Consent: The patient's anesthetic plan and its attendant risks and benefits were discussed with the patient/family/POA. Questions were solicited and answers provided to the satisfaction of the patient/family/POA.
[2021-11-10] MEDS: SIMETHICONE ORAL SUSPENSION 20 MG/0.3 ML 30 ML BOTTLE 0.6 ML IRRIGATION (08:35)
[2021-11-10 08:43] VITALS: BP 107/59; PULSE 45; RESP 13; O2SAT 99
[2021-11-10 08:53] VITALS: BP 135/80; PULSE 45; RESP 12; O2SAT 100
[2021-11-10 09:03] VITALS: BP 161/84; PULSE 45; RESP 18; O2SAT 100
== END 2021-11-10 10:00 | disposition home or self-care (01) ==
PROVIDERS: PCP Nurse Practitioner Family; Visit Provider Internal Medicine Gastroenterology
PROC: 0DJD8ZZ Inspection of Lower Intestinal Tract, Via Natural or Artificial Opening Endoscopic (ICD-10-PCS; CPT 45378; principal; 2021-11-10 08:30)
DX: Z12.11 Encounter for screening for malignant neoplasm of colon (principal); K63.5 Polyp of colon; I10 Essential (primary) hypertension
CPT/HCPCS: 45385; 88305; J2704; J7120

== ENCOUNTER 2022-06-29 14:35 | Outpatient (CLI) | payer MEDICARE, SELFPAY ==
--- NOTE | ~2022-06-29 | XR_ITS ---
EXAMINATION: XR abdomen/kub 1V DATE: 06/29/2022 14:58 INDICATION: Calcium kidney stone. TECHNIQUE: A supine view of the abdomen on 2 radiographs was obtained. COMPARISON: CT abdomen and pelvis 08/30/2020 FINDINGS: There are no dilated loops of bowel. The kidneys are obscured by bowel. There are phlebolit hs in the pelvis. IMPRESSION: 1. No visible urolithiasis. Reviewed, dictated and finalized at location A. IMPRESSION: 1. No visible urolithiasis.
== END 2022-06-29 14:36 | disposition home or self-care (01) ==
PROVIDERS: PCP Nurse Practitioner Family; Visit Provider Urology
DX: N20.0 Calculus of kidney (principal)
CPT/HCPCS: 74018

== ENCOUNTER 2022-11-26 07:37 | Outpatient (CLI) | payer MEDICARE, SELFPAY ==
[2022-11-26 08:07] LABS: Basophils Percent Auto 0.7 % (0.2-1.2); Eosinophils Absolute Auto 0.2 K/mm3 (0-0.3); Eosinophils Percent Auto 3.8 % (0-4.4); Hemoglobin 13.5 g/dL (14.0-18.0); Immature Granulocyte Absolute 0.01 K/mm3 (0.00-0.031); Immature Granulocyte Percent A 0.2 % (0-0.5); Lymphocytes Absolute Auto 2.27 K/mm3 (0.9-3.2); Lymphocytes Percent Auto 38.9 % (18.3-44.2); Mean Corpuscular HGB Conc 32.9 g/dl (32-36); Mean Corpuscular Hemoglobin 29.9 pg (26-34); Mean Corpuscular Volume 90.9 fl (80-100); Mean Platelet Volume 9.4 fl (7.4-10.4); Monocytes Absolute Auto 0.5 K/mm3 (0.1-0.6); Monocytes Percent Auto 8.6 % (2.6-8.5); Neutrophils Absolute Auto 2.8 K/mm3 (1.3-6.7); Neutrophils Percent Auto 47.8 % (45.5-73.1); Platelet Count Result 290 k/mm3 (150-375); Red Blood Count 4.51 M/mm3 (4.6-6.20); Red Cell Distribution Width 13.4 % (11.5-14.5); White Blood Count 5.8 K/mm3 (4.5-10.0)
[2022-11-26 08:13] LABS: Appearance Urine Clear (Clear); Bilirubin Urine Negative (Negative); Blood Urine Negative (Negative); Color Urine Yellow (Yellow); Glucose Urine UA Negative (Negative); Ketones Urine Trace mg/dL (Negative); Leukocyte Esterase Ur Negative LEU/UL (NEGATIVE); Nitrate Urine Negative (Negative); Protein Urine Negative (Negative); Specific Grav Ur 1.018 (1.001-1.035); pH Urine 6.5 (5.0-9.0)
[2022-11-26 08:18] LABS: Alanine Aminotransferase 16 U/L (6-50); Albumin Level 4.4 g/dL (3.5-5.1); Alkaline Phosphatase 41 U/L (38-126); Anion Gap 5 mmol/L (8-16); Aspartate Amino Transferase 21 U/L (17-59); Bilirubin,Total 0.6 mg/dL (0.2-1.3); Blood Urea Nitrogen 17 mg/dL (9-20); Carbon Dioxide 27 mmol/L (22-30); Chloride 106 mmol/L (98-107); Cholesterol 208 mg/dL (0-200); Estimated Glomerular Filt Rate > 60; Glucose 86 mg/dL (65-110); HDL Direct 48 mg/dL; Potassium 4.1 mmol/L (3.4-5.0); Sodium 138 mmol/L (137-145); Triglycerides 117 mg/dL (<150); Uric Acid 5.8 mg/dL (3.5-8.5)
[2022-11-26 08:29] LABS: LDL Cholesterol Direct 107 mg/dL
[2022-11-26 08:30] LABS: Add Urine Microscopic? NO
--- NOTE | 2022-11-26 08:32 | ECG_ITS ---
Measurements Intervals [place] Rate: 54 P: 64 CT: 162 QRS: 37 QRSD: 80 T: 11 QT: 411 QTc: 391 Interpretive Statements SINUS BRADYCARDIA COMPARED TO ECG 10/20/2019 16:16:12 NO SIGNIFICANT CHANGES Electronically Signed On 11-26-2022 11:01:25 CDT by Renae Hickman M.D.
[2022-11-26 08:44] LABS: Iron 70 ug/dL (49-181)
[2022-11-26 08:54] LABS: Percent Iron Saturation 24 % (20-50)
== END 2022-11-26 07:38 | disposition home or self-care (01) ==
LOC: ANHLAB 07:40
PROVIDERS: PCP Nurse Practitioner Family; Visit Provider Nurse Practitioner Family
DX: D64.9 Anemia, unspecified (principal); I10 Essential (primary) hypertension; E53.8 Deficiency of other specified B group vitamins; R00.1 Bradycardia, unspecified
CPT/HCPCS: 36415; 80048; 80061; 80076; 81003; 82607; 82728; 82746; 83540; 83550; 84443; 84550; 85025; 93005

== ENCOUNTER 2023-01-14 08:38 | Outpatient (CLI) | payer MEDICARE, SELFPAY ==
--- NOTE | ~2023-01-14 | XR_ITS ---
Right Knee Technique: AP, lateral, and sunrise views were obtained. Clinical History: Cyst Findings: No fracture or dislocation is seen. Osseous alignment is anatomic. Minimal patellar spurrin g noted. Mild prepatellar soft tissue thickening noted. No joint effusion is seen. Impression: Minimal patellar spurring. Mild prepatellar soft tissue thickening, nonspecific. Reviewed, dictated and finalized at location . Impression: Minimal patellar spurring. Mild prepatellar soft tissue thickening, nonspecific.
== END 2023-01-14 08:39 | disposition home or self-care (01) ==
PROVIDERS: PCP Nurse Practitioner Family; Visit Provider Nurse Practitioner Family
DX: M25.861 Other specified joint disorders, right knee (principal); M79.89 Other specified soft tissue disorders
CPT/HCPCS: 73564

== ENCOUNTER 2023-02-06 13:24 | Outpatient (CLI) | payer MEDICARE, SELFPAY ==
--- NOTE | ~2023-02-06 | MR_ITS ---
MRI of the right knee Clinical history: Joint disorder Technique: Coronal proton density and proton density-weighted images, sagittal proton-density and T2 fat-sat images, and axial proton-density fat-saturated images were acquired. Following intravenous ad ministration of 14 cc MultiHance gadolinium, T1-weighted fat-sat imaging was performed in the axial, coronal, and sagittal planes. Findings: Anterior and posterior cruciate ligaments are intact. Medial collateral ligament and the la teral collateral ligament complex are intact. Popliteus tendon is intact. Medial and lateral menisci are intact, without evidence of tear. There is intrasubstance degenerative signal in the posterior horn of the medial meniscus. There is focal mild to moderate chondral lesion at the inner margin of the medial femoral condyle. Ar ticular cartilage in the lateral and patellofemoral compartments is well preserved. Extensor mechanism is intact. No significant joint effusion or Tracey's cyst present. At the anteromed ial aspect of the knee, there is a fat attenuation nonenhancing mass consistent with lipoma, measurin g 4.5 x 1.9 x 4.9 cm. No suspicious postcontrast enhancement identified. Impression: 5 x 1.9 x 4.9 cm lipoma at the anteromedial aspect of the knee. No ligamentous injury or meniscal tear. Focal mild to moderate chondral lesion at the inner margin of the medial femoral condyle. Reviewed, dictated and finalized at [facility]. [facility] [employer] Impression: 5 x 1.9 x 4.9 cm lipoma at the anteromedial aspect of the knee. No ligamentous injury or meniscal tear. Focal mild to moderate chondral lesion at the inner margin of the medial femora l condyle.
== END 2023-02-06 13:25 | disposition home or self-care (01) ==
LOC: ANHIMG 13:29
PROVIDERS: PCP Nurse Practitioner Family; Visit Provider Nurse Practitioner Family
DX: R93.6 Abnormal findings on diagnostic imaging of limbs (principal); M25.869 Other specified joint disorders, unspecified knee; D17.23 Benign lipomatous neoplasm of skin and subcutaneous tissue of right leg; M89.9 Disorder of bone, unspecified
CPT/HCPCS: 73723; A9577

== ENCOUNTER 2023-05-17 02:27 | Day surgery (SDC) | payer MEDICARE, SELFPAY ==
[2023-05-05 11:25] VITALS: BMI 25.4
--- NOTE | 2023-05-05 11:31 | PC.NURSE ---
Report to the Outpatient Waiting Room, entrance under the green pavilion located off [facility], at time __1200 on date __05/17/23 . Planned Procedure Time: ___2 PM . Time changes happen often and if your time is changed the preop area will call you the afternoon before. - You and your visitor will be asked to self-screen and do not enter if you have any COVID symptoms. - A mask is optional within the hospital at this time. Patients may have clear liquids (water, carbonated beverages, clear teas, apple juice) until 3 hours prior to surgery (1100 AM) with a maximum of 20 ounces. - No food from midnight until time of surgery - Infants may have breast milk until 4 hours before surgery, formula 6 hours prior to surgery. - Children will be allowed to drink immediately following surgery. If applicable, please bring a bottle or sippy cup to assist with drinking. Juice, water, soda, and popsicles are readily available. For infants on formula, please bring formula the day of surgery. Pacifiers are allowed. Take the following medications with a SIP of water the morning of surgery: ___AMLODIPINE DO NOT STOP ANY OF YOUR OTHER PRESCRIPTION MEDICATIONS PRIOR TO SURGERY ?EXCEPT THE FOLLOWING Medications to discontinue per ANESTHESIA - __VITAMINS/SUPPLEMENTS 3 DAYS PRIOR TO SURGERY, __ Date to take last dose___05/13/23 Please no make-up, nail yoruba, hairspray, perfume, deodorant, or body powder the day of surgery. No jewelry (including any body piercings) or valuables the day of surgery, leave them at home. Please take a shower or bath the night before, or the morning of, surgery with an antibacterial soap. Wear comfortable, loose fitting clothing. Children are encouraged to wear pajamas. - Jewelry must be removed prior to entering the operating room. Rings and piercings that are not removed may be cut off. - The hospital will not accept responsibility for valuables. - Please leave all valuables, including medications, at home the day of surgery. If you are going home after surgery, a licensed straight truck driver must drive you home. - NO public transportation without another adult if you receive anesthesia. - We recommend that an adult stay with you for 24 hours following discharge. - We also recommend that you do not drive, make important decision, drink alcoholic beverages, or take any drugs that were not prescribed by your health care provider for at least 24 hours after your discharge time. For Pediatric surgeries, we recommend two adults accompany the child home. Follow any additional instructions given to you from your surgeon. If you or anyone in your household have experienced Covid symptoms in the past week, please notify your surgeon or the nurse liaison at the phone number below for possible testing. Telephone instructions given to ____PT and asked if any additional questions and then verbalized understanding. Patient advised to call surgeon office or pre surgery nurse liaison [phone] if any additional questions.
[2023-05-17] VITALS (10 sets, daily range): BP systolic 113–168; BP diastolic 64–79; PULSE 55–71; RESP 12–18; TEMP 36.1–36.4; O2SAT 98–100
--- NOTE | 2023-05-17 11:54 | WPDHPUPDATE1 ---
History and Physical Update Update Date/Time: 05/17/23 11:54 History and Physical has been reviewed, including an updated exam of the patient. There are NO changes in the patient's condition. Risks, benefits, and alternatives have been discussed and questions answered. Patient agrees to proceed with procedure.
[2023-05-17] MEDS: ACETAMINOPHEN 500 MG TABLET 1000 MG PO (13:00)
[2023-05-17] MEDS: LACTATED RINGERS 1,000 ML 30 ML IV CONT ×2 (13:00→14:47)
[2023-05-17] MEDS: KETOROLAC 15 MG/ML VIAL (*BKC) IV PUSH (13:00)
--- NOTE | 2023-05-17 13:47 | WPDANESEPPF ---
Anes - Initial Pre Proc Eval Procedure: Operation Date: 05/17/23 14:00 Proposed Procedures p Excision of Right Leg Benign Lipoma - Valentin Bell MD Date/Time: 05/17/23 13:47 Surgeon: Valentin Bell MD Pre Op Diagnosis: Benign lipoma of right leg Patient Data Age: 67 Gender: M Height: 1.69 m Weight: 72.72 kg Allergies Allergy/AdvReac Type Severity Reaction Status Date / Time No Known Allergies Allergy Verified 05/11/23 11:32 Home Medications Medication Instructions Recorded Confirmed Type cyanocobalamin (vitamin B-12) 1 tab-cap DAILY 05/05/23 05/11/23 History amlodipine 10 mg tablet 10 mg PO DAILY #30 tabs 05/11/23 05/11/23 Rx azithromycin 250 mg tablet See Rx Instructions PO .COMPLEX #6 05/11/23 05/11/23 Rx tabs hydrocodone 5 mg-acetaminophen 325 1 - 2 tablet PO Q4-6H PRN pain #30 05/17/23 Rx mg tablet tabs Patient hx anesthesia problems: none Family hx anesthesia problems: none Results Review: All pre-operative results and documents have been reviewed as part of the pre-operative evaluation. [facility] Past Medical History Medical History (Updated 05/17/23 @ 12:03 by FELECIA Ordoñez) Abnormal x-ray of knee Anemia B12 deficiency BMI 26.0-26.9,adult BMI 28.0-28.9,adult BMI greater than 30 BPH (benign prostatic hyperplasia) Bronchitis Cyst of knee joint Encounter to establish care Head congestion Hematuria HTN (hypertension) Hyperlipidemia Left shoulder pain Vision changes Surgical History Surgical History History of arthroscopy of left knee History of neck surgery History of prostate surgery (~2018) Status post total knee replacement, left Family History Family History Father Unknown family medical history Mother Unknown family medical history Other Adopted Social History Social History Smoking status: Never smoker Second hand tobacco smoke exposure: No Alcohol intake: current Alcohol use details: 2-3/MONTH Substance use: never Substance use type: does not use Do You Feel Safe in your Home?: Yes Lack of Transportation: No Lack of Food: Never True Current Housing: I Have Housing Concerned About Future Housing: No Difficulty Paying Gas/Electric Bills: No Difficulty Paying for Meds: No Currently Unemployed: No Education: Bachelor's Degree Difficulty w/ Childcare or Family Care: No Living arrangements: with family Occupation/Education: retired Gender identity (if verbalized by the patient): Male Sexual Orientation (if Verbalized by the Patient): Straight or Heterosexual Spiritual care concerns: No Anes - Eval Final PreProcedure Day of Procedure 05/17/23 13:47 Patient weight: normal Heart: regular rate and rhythm Lungs: clear to auscultation Airway: Mallampati scale class II Neurological: alert and oriented Last oral intake: >/= 8 hours ASA classification: III Emergent: no Anesthetic plan: proceed Anesthesia type and monitoring: general LMA and standard monitoring Results Review: All pre-operative results and documents have been reviewed as part of the pre-operative evaluation. Informed Consent: The patient's anesthetic plan and its attendant risks and benefits were discussed with the patient/family/POA. Questions were solicited and answers provided to the satisfaction of the patient/family/POA.
[2023-05-17] MEDS: ceFAZolin 2 GM/D5W 50 ML 2 GM/50 ML BAG IVPB (13:58)
[2023-05-17] MEDS: BUPIVACAINE/EPINEPHRINE 0.5% 30 ML VIAL INFILTRATE (14:22)
--- NOTE | 2023-05-17 15:27 | P.OP_ITS ---
Procedure Note - Detailed Date of Procedure 05/17/23 Pre-op Diagnosis Benign lipoma of right leg Post-op Diagnosis Same Procedure Performed Lipoma excision right leg. (4.5 cm x 1.9 cm x 4.9 cm benign soft tissue mass) Surgeon Valentin Bell MD Health Sciences Program Coordinator Kriss Duvall PA-C Anesthesia General Indications MRI scan reviewed shows a 4.5 cm x 1.9 cm x 4.9 cm soft tissue mass, consistent with lipoma. Findings Benign-appearing lipomatous mass consistent with the MRI findings. Description of Procedure Preoperative antibiotics were given. The patient was intubated. The right leg was prepped and draped in usual sterile fashion with a well-padded tourniquet on the thigh. The mass was located at the very proximal medial aspect of the tibia. A longitudinal incision was created after the limb was exsanguinated and the tourniquet inflated to 275 mmHg. Careful blunt dissection around the subcutaneous lipoma created a nice tissue plane. The lipoma was quite well circumscribed and came out in single mass. The tourniquet was released. Meticulous hemostasis maintained. The wound was irrigated and closed with interrupted 3-0 Monocryl suture followed by running 4-0 Monocryl suture and Steri-Strips. A waterproof dressing and bulky padded wound dressing was applied. Light compression placed on the lower extremity. The patient was extubated and brought to the recovery room in stable condition. Physician blood bank assistant, Kriss Duvall PA-C, required for surgery; including patient positioning, draping, tissue retraction, maintaining instrument p osition, wound closure, and dressing placement. Estimated Blood Loss 2 Drains No Packing No Pathology Yes Complications No immediate complications Condition Stable Disposition PACU [facility] Billing Surgery - Charge Forward: Surgery Billing
== END 2023-05-17 17:30 | disposition home or self-care (01) ==
PROVIDERS: PCP Nurse Practitioner Family; Visit Provider Orthopaedic Surgery
PROC: (CPT 27337; principal; 2023-05-17 14:00)
DX: D17.23 Benign lipomatous neoplasm of skin and subcutaneous tissue of right leg (principal)
CPT/HCPCS: 27337; 88304; A9270; J0690; J1100; J1885; J2250; J2405; J2704; J3010; J7120

== ENCOUNTER 2023-12-02 07:14 | Outpatient (CLI) | payer MEDICARE, SELFPAY ==
[2023-12-02 07:50] LABS: Basophils Absolute Auto 0.1 K/mm3 (0.0-0.1); Eosinophils Absolute Auto 0.2 K/mm3 (0-0.3); Eosinophils Percent Auto 3.5 % (0-4.4); Hematocrit 38.5 % (42.0-52.0); Hemoglobin 13.1 g/dL (14.0-18.0); Immature Granulocyte Absolute 0.01 K/mm3 (0.00-0.031); Immature Granulocyte Percent A 0.2 % (0-0.5); Lymphocytes Percent Auto 36.5 % (18.3-44.2); Mean Corpuscular Hemoglobin 30.8 pg (26-34); Mean Corpuscular Volume 90.4 fl (80-100); Mean Platelet Volume 9.3 fl (7.4-10.4); Monocytes Absolute Auto 0.5 K/mm3 (0.1-0.6); Monocytes Percent Auto 7.5 % (2.6-8.5); Neutrophils Absolute Auto 3.1 K/mm3 (1.3-6.7); Neutrophils Percent Auto 51.3 % (45.5-73.1); Platelet Count Result 262 k/mm3 (150-375); Red Blood Count 4.26 M/mm3 (4.6-6.20); Red Cell Distribution Width 13.2 % (11.5-14.5)
[2023-12-02 07:54] LABS: Add Urine Microscopic? NO; Appearance Urine Clear (Clear); Bacteria Urine None Seen /hpf; Bilirubin Urine Negative (Negative); Blood Urine Non-Hemolyzed Trace (Negative); Color Urine Yellow (Yellow); Glucose Urine UA Negative (Negative); Ketones Urine Negative (Negative); Leukocyte Esterase Ur Negative LEU/UL (Negative); Nitrate Urine Negative (Negative); Non Pathogenic Casts 0-2; Protein Urine Negative (Negative); RBC Urine 0-2 /hpf (0-2); Specific Grav Ur 1.016 (1.001-1.035); Squamous Epithelial Cell Urine None Seen /hpf (Few); WBC Urine 0-5 /hpf (0-3); pH Urine 6.5 (5.0-9.0)
[2023-12-02 10:55] LABS: Iron 116 ug/dL (49-181); Percent Iron Saturation 38 % (20-50)
[2023-12-02 11:07] LABS: Alanine Aminotransferase 11 U/L (6-50); Alkaline Phosphatase 36 U/L (38-126); Anion Gap 6 mmol/L (4-12); Aspartate Amino Transferase 21 U/L (17-59); Bilirubin,Total 0.7 mg/dL (0.2-1.3); Blood Urea Nitrogen 16 mg/dL (9-20); Calcium 8.8 mg/dL (8.4-10.2); Carbon Dioxide 27 mmol/L (22-30); Chloride 105 mmol/L (98-107); Cholesterol 158 mg/dL (0-200); Estimated Glomerular Filt Rate > 60; Glucose 83 mg/dL (65-110); HDL Direct 50 mg/dL; Potassium 3.8 mmol/L (3.4-5.0); Sodium 138 mmol/L (137-145); Triglycerides 83 mg/dL (<150)
[2023-12-02 11:19] LABS: LDL Cholesterol Direct 73 mg/dL
[2023-12-02 11:38] LABS: Prostate Specific Antigen 1.4 ng/mL (< OR = 4.0)
[2023-12-02 11:57] LABS: Vitamin B12 > 1000.0 pg/mL (239-931)
== END 2023-12-02 07:15 | disposition home or self-care (01) ==
PROVIDERS: PCP Nurse Practitioner Family; Visit Provider Nurse Practitioner Family
DX: D64.9 Anemia, unspecified (principal); I10 Essential (primary) hypertension; E78.5 Hyperlipidemia, unspecified; Z12.5 Encounter for screening for malignant neoplasm of prostate; E53.8 Deficiency of other specified B group vitamins
CPT/HCPCS: 36415; 80053; 80061; 81003; 82607; 82728; 83540; 83550; 84153; 84443; 85025; G0103

== ENCOUNTER 2023-12-25 08:27 | Outpatient (CLI) | payer MEDICARE, SELFPAY ==
--- NOTE | ~2023-12-25 | MR_ITS ---
EXAMINATION: MR brain/brain stem wo/w con DATE: 12/25/2023 09:40 INDICATION: Unspecified visual disturbance. TECHNIQUE: Magnetic resonance imaging (MRI) of the brain and brainstem was performed without and with 15 mL MultiHance intravenous contrast. COMPARISON: None. FINDINGS: There are scattered areas of nonspecific increased T2-weighted signal intensity in the cere bral white matter, which is within normal limits for the patient's age. There is no intracranial hemo rrhage, acute infarction, or abnormal intracranial mass lesion. The ventricles are normal in size. Th e paranasal sinuses are clear. The orbits are normal. There is a right mastoid effusion. IMPRESSION: 1. Normal aging brain. Reviewed, dictated and finalized at location A. IMPRESSION: 1. Normal aging brain.
== END 2023-12-25 08:28 | disposition home or self-care (01) ==
PROVIDERS: PCP Nurse Practitioner Family; Visit Provider Nurse Practitioner Family
DX: H53.9 Unspecified visual disturbance (principal); R42 Dizziness and giddiness
CPT/HCPCS: 70553; A9577

== ENCOUNTER 2024-08-12 16:29 | Emergency (ER) | payer MEDICARE, SELFPAY ==
--- NOTE | ~2024-08-12 | XR_ITS ---
XR foot LT min 3V Ordering provider: Summer Cruz MD History: . injury and bruising . Comparison: None. FINDINGS: BONES: Fracture in the distal epiphysis with lateral and dorsal displacement of the distal fragment is seen. No other definite fractures seen. JOINT SPACES: Normal. No tarsal coalition. SOFT TISSUES: Soft tissue swelling is seen in the area of the proximal interphalangeal joint of the s econd toe. IMPRESSION: Fracture of the distal epiphysis of the proximal phalanx of the second toe with lateral and dorsal di splacement of the distal fragment. Reviewed, dictated and finalized at location A. IMPRESSION: Fracture of the distal epiphysis of the proximal phalanx of the second toe with lateral and dorsal displacement of the distal fragment.
--- OUTSIDE RECORDS SUMMARY | 2024-08-12 16:32 | XMS_ITS | Clinical Summary ---
Author Organization 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 Gender Identity Not on file Sexual Orientation Not on file Plan of Treatment Health Maintenance Due Date Last Done Comments Colorectal Cancer Screening Colonoscopy (10 Years) 1954 Hepatitis C 1972 DTaP, Tdap and Td Vaccines ( 1 - Tdap) 1973 Pneumococcal Vaccine: 50+ Ye ars (1 of 1 - PCV) 2004 Zoster Vaccines (1 of 2) 2004 COVID-19 Vaccine ( - 2023-2 5 season) 2023 RSV Immunization or 60+ Years (1 - 1-dose 75+ series) 2029 Meningococcal B Vaccine Aged Out No l onger eligible based on patient's age to complete this topic Meningococcal Vaccine Aged Out No monica peace eligible based on patient's age to complete this topic RSV Immunizations Under 20 Months Aged Out No longer eligible based on patient's age to complete this topic Insurance [employer] OPEN ACCESS [facility] [employer] OPEN ACCESS [facility]
[2024-08-12 16:36] VITALS: BP 149/77; PULSE 65; RESP 16; TEMP 36.3; O2SAT 99
--- OUTSIDE RECORDS SUMMARY | 2024-08-12 16:54 | XMS_ITS | Clinical Summary ---
Author Organization 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
--- NOTE | 2024-08-12 17:32 | ED_ITS ---
HPI - Extremity Injury (Lower) General Chief Complaint: Extremity Injury, Lower Stated Complaint: Injury to left foot-dropped heavy object on it Time Seen by Provider: 08/12/24 16:42 History of Present Illness HPI Narrative: 68-year-old male presents emergency department for foot pain after accidentally dropping a sway bar on the top of his left foot 2 days ago. Patient states he has since developed swelling and ecchymosis to the dorsum of his left foot and bruising to the 2nd through 4th MTPs. Patient has been body T is 2nd and 3rd toes with improvement. Denies difficulty with range of motion but does have some discomfort with ambulation. Has been taking Tylenol with improvement. Related Data Home Medications ?Medication ?Instructions ?Recorded ?Confirmed ?Last Taken ?Type cyanocobalamin (vitamin B-12) 0.5 tab-cap BYMOUTH DAILY 05/24/24 Unknown History Allergies Allergy/AdvReac Type Severity Reaction Status Date / Time No Known Allergies Allergy Verified 08/12/24 16:30 Review of Systems Review of Systems: All systems reviewed & are unremarkable except as noted in HPI and below PMFSH Past Medical History Medical History Vestibular migraine Head congestion Bronchitis Abnormal x-ray of knee Cyst of knee joint BMI 26.0-26.9,adult Vision changes BMI greater than 30 B12 deficiency Hyperlipidemia BMI 28.0-28.9,adult Left shoulder pain Hematuria Anemia BPH (benign prostatic hyperplasia) Encounter to establish care HTN (hypertension) Surgical History Surgical History History of surgery (~05/17/23) Excision of Lipoma Rt Leg (Medial side of knee) Status post total knee replacement, left History of prostate surgery (~2018) History of neck surgery History of arthroscopy of left knee Family History Family History Father Unknown family medical history Mother Unknown family medical history Other Adopted Social History Social History Smoking status: Never smoker Second hand tobacco smoke exposure: No Alcohol intake: current Alcohol use details: 2-3/MONTH Substance use: never Substance use type: does not use Do You Feel Safe in your Home?: Yes Lack of Transportation: No Lack of Food: Never True Current Housing: I Have Housing Concerned About Future Housing: No Difficulty Paying Gas/Electric Bills: No Difficulty Paying for Meds: No Currently Unemployed: No Education: Bachelor's Degree Difficulty w/ Childcare or Family Care: No Living arrangements: with family Occupation/Education: retired Gender identity (if verbalized by the patient): Male Sexual Orientation (if Verbalized by the Patient): Straight or Heterosexual Spiritual care concerns: No Exam Narrative: GENERAL: Well-appearing, well-nourished, and in no acute distress. HEAD: Normocephalic, atraumatic. EYES: EOMI. ENT: Nares clear, no rhinorrhea or epistaxis. Mucous membranes moist. NECK: Supple. CHEST: Clear to auscultation. No respiratory distress. HEART: Regular rate and rhythm. No murmur heard. Normal peripheral pulses. EXTREMITIES: Left foot with tenderness to the 2nd through 4th MTPs and ecchymosis to the dorsum of the 2nd through 4th toes and distal foot, edema noted to the 2nd toe with no obvious bony deformity. Cap refill less than 2 throughout all toes. Patient able to wiggle toes without difficulty. No tenderness remainder foot or ankle. DP pulse 2 +. Sensation intact throughout. SKIN: Warm, dry, no rash. NEURO: No focal deficits. Alert and oriented x3 Course Vital Signs Vital signs: Vital Signs Temperature 97.3 F L 08/12/24 16:36 Pulse Rate 65 08/12/24 16:36 Respiratory Rate 16 08/12/24 16:36 Blood Pressure 149/77 H 08/12/24 16:36 Pulse Oximetry 99 08/12/24 16:36 Oxygen Delivery Room Air 08/12/24 16:36 Temperature 97.3 F L 08/12/24 16:36 Pulse Rate 65 08/12/24 16:36 Respiratory Rate 16 08/12/24 16:36 Blood Pressure 149/77 H 08/12/24 16:36 Pulse Oximetry 99 08/12/24 16:36 Oxygen Delivery Room Air 08/12/24 16:36 MDM - Extremity Injury (Lower) MDM Narrative Medical decision making narrative: 68-year-old male presents to the emergency department for left foot pain after dropping a sway bar on his left foot 2 days ago. Vitals are stable. Patient is afebrile and nontoxic appearing. Exam is notable for the above. He is neurovascularly intact. X-ray show fracture of the distal epiphysis of the proximal phalanx of the 2nd toe with lateral and dorsal displacement of the distal fragment. Patient updated on results. Discussed findings with agriculture laborer, Dr. Avelar, who agrees to RICE, marita tape, post op shoe and f/u. States reduction not necessary given no obvious deformity clinically patient is neurovascularly intact. Patient feels comfortable with Tylenol and [id number] NSAIDs p.r.n. for pain and was given follow-up for Podiatry. Discussed strict ED return precautions. He is agreeable with the plan verbalized understanding. Discharged in stable condition Discharge Plan Discharge Clinical Impression: Closed fracture of second toe of left foot Patient Disposition: Home Condition: Stable Instructions: Antibiotic Form, Toe Fracture (ED) Additional Instructions: You were evaluated in the emergency department for left foot pain. You were found to have a fracture of the 2nd toe. Please rest, ice, elevate and keep your toes marita-taped as discussed. Wear the postop shoe. Take Tylenol and ibuprofen as directed on the bottle [id number] for pain. Follow-up with the agriculture laborer. Return to the emergency department if you develop any new or worsening symptoms. Patient Language: Albanian Prescriptions: No Action amlodipine 10 mg tablet 10 mg PO DAILY Qty: 90 3RF losartan 25 mg tablet 25 mg PO DAILY Qty: 90 3RF cyanocobalamin (vitamin B-12) 0.5 tab-cap BYMOUTH DAILY Follow-up/Referrals: Aron Avelar Jr., ALANA [Physician] - Marisa Reich NP [Primary Care Provider] -
== END 2024-08-12 18:09 | disposition home or self-care (01) ==
PROVIDERS: Emergency Provider Physician Assistant; PCP Nurse Practitioner Family
DX: S92.512A Displaced fracture of proximal phalanx of left lesser toe(s), initial encounter for closed fracture (principal); I10 Essential (primary) hypertension; E78.5 Hyperlipidemia, unspecified; N40.0 Benign prostatic hyperplasia without lower urinary tract symptoms; Z86.2 Personal history of diseases of the blood and blood-forming organs and certain disorders involving the immune mechanism; Z96.652 Presence of left artificial knee joint; W20.8XXA Other cause of strike by thrown, projected or falling object, initial encounter
CPT/HCPCS: 73630; 99284

== ENCOUNTER 2024-09-02 12:36 | Emergency (ER) | payer MEDICARE, SELFPAY ==
[2024-09-02 12:45] VITALS: BP 133/73; PULSE 64; RESP 18; TEMP 36.8; O2SAT 100
--- NOTE | 2024-09-02 12:53 | ED.EAR ---
HPI - Ear Problem General Chief complaint: Ear Stated complaint: RT ear clogged patient presents to the [facility] with complaints of right ear feeling clogged with decreased hearing. Patient reports this started a little over 1 week ago, noted he did go on a trip to [facility] right after symptoms started but denied any significant problems, reports this was slowly improving. Yesterday noticed he was having a lot of postnasal drainage and did feel a pop and pressure change in the right ear then noticed the clogged feeling in decreased hearing returned in the right ear. Left ear no symptoms noted. Denies headache, dizziness, or drainage from the ear. Related Data Home Medications ?Medication ?Instructions ?Recorded ?Confirmed ?Last Taken ?Type cyanocobalamin (vitamin B-12) 0.5 tab-cap BYMOUTH DAILY 05/24/24 09/02/24 Unknown History Allergies Allergy/AdvReac Type Severity Reaction Status Date / Time No Known Allergies Allergy Verified 09/02/24 12:42 Review of Systems Constitutional: Constitutional: Reports as per HPI, Denies chills, Denies fatigue, Denies fever(s) and Denies weakness Eyes: Eyes: Reports no additional eye complaints ENT: Reports as per HPI, Denies dysphagia, Denies vertigo, Denies dizziness, Denies epistaxis, Denies nasal congestion and Denies sore throat Comments: Nasal drainage, right ear clogged, decreased hearing right ear Cardiovascular: Cardiovascular: Reports no additional cardiovascular complaints Respiratory: Respiratory: Reports no additional respiratory complaints Gastrointestinal: Gastrointestinal: Reports no additional gastrointestinal complaints Musculoskeletal: Musculoskeletal: Reports no additional musculoskeletal complaints Neurologic: Reports as per HPI and Denies headache(s) Psychiatric: Psychiatric: Reports no additional psychiatric complaints Endocrine: Endocrine: Reports no additional endocrine complaints Hematologic/Lymphatic: Hematologic/Lymphatic: Reports no additional hematologic/lymphatic complaints Allergic/Immunologic: Allergic/Immunologic: Reports no additional allergic/immunologic complaints COUNT INCLUDES THE [facility] Past Medical History Medical History Vestibular migraine Head congestion Bronchitis Abnormal x-ray of knee Cyst of knee joint BMI 26.0-26.9,adult Vision changes BMI greater than 30 B12 deficiency Hyperlipidemia BMI 28.0-28.9,adult Left shoulder pain Hematuria Anemia BPH (benign prostatic hyperplasia) Encounter to establish care HTN (hypertension) Surgical History Surgical History History of surgery (~05/17/23) Excision of Lipoma Rt Leg (Medial side of knee) Status post total knee replacement, left History of prostate surgery (~2017) History of neck surgery History of arthroscopy of left knee Family History Family History Father Unknown family medical history Mother Unknown family medical history Other Adopted Social History Social History Smoking status: Never smoker Second hand tobacco smoke exposure: No Alcohol intake: current Alcohol use details: 2-3/MONTH Substance use: never Substance use type: does not use Do You Feel Safe in your Home?: Yes Lack of Transportation: No Lack of Food: Never True Current Housing: I Have Housing Concerned About Future Housing: No Difficulty Paying Gas/Electric Bills: No Difficulty Paying for Meds: No Currently Unemployed: No Education: Bachelor's Degree Difficulty w/ Childcare or Family Care: No Living arrangements: with family Occupation/Education: retired Gender identity (if verbalized by the patient): Male Sexual Orientation (if Verbalized by the Patient): Straight or Heterosexual Spiritual care concerns: No Exam Const: General: healthy appearing and no acute distress; No diaphoretic or ill appearing Nutritional Appearance: well nourished Orientation/consciousness: patient oriented x3 Limitations: no limitations HENMT: Head: normal to inspection Ears: external ears normal and TM abnormal ( right TM small blood clot noted at 7 o'clock- no obvious rupture noted) Face/Nose/Sinus: Normal external nose present Face and sinus: normal facial exam Mouth: Yes Normal oral and palatal mucosa present Throat: posterior oropharynx normal Neck: Neck: no lymphadenopathy Resp: Effort & Inspection: normal respiratory effort Auscultation: clear to auscultation bilaterally Cardio: Rate: regular rate Rhythm: regular rhythm Skin: General skin exam: normal color Rashes: no rashes Wounds: no wounds Neuro: General: patient oriented x3 Speech: normal speech Gait exam (Neuro): Normal gait present Psych: Mental Status: mental status grossly normal Affect: normal affect Attitude: cooperative Course Course Level of Care: Express Care Visit Vital Signs Vital signs: Vital Signs Temperature 98.2 F 09/02/24 12:45 Pulse Rate 64 09/02/24 12:45 Respiratory Rate 18 09/02/24 12:45 Blood Pressure 133/73 09/02/24 12:45 Pulse Oximetry 100 09/02/24 12:45 Oxygen Delivery Room Air 09/02/24 12:45 Temperature 98.2 F 09/02/24 12:45 Pulse Rate 64 09/02/24 12:45 Respiratory Rate 18 09/02/24 12:45 Blood Pressure 133/73 09/02/24 12:45 Pulse Oximetry 100 09/02/24 12:45 Oxygen Delivery Room Air 09/02/24 12:45 Medical Decision Making MDM Narrative Medical decision making narrative: noted area of of blood clot on the TM likely given the pressure of strangers a small rupture of this TM will put patient on Cipro ear drops follow-up with primary care in 1 week may need follow-up with ear nose and throat Discharge instructions reviewed with patient, as well as provided in writing per nursing staff. The instructions also include specific and strict return/GO TO THE ER as well as f/u information. All questions have been answered, and the patient deny any further questions with discharge and discharge plan. Differential Diagnosis Differential Diagnosis: AOM, otitis externa, ruptured eardrum, cerumen impaction Medical Records Medical records reviewed: Yes I reviewed the external patient's medical records. Vital Signs Vital Signs: Vital Signs Temperature 98.2 F 09/02/24 12:45 Pulse Rate 64 09/02/24 12:45 Respiratory Rate 18 09/02/24 12:45 Blood Pressure 133/73 09/02/24 12:45 Pulse Oximetry 100 09/02/24 12:45 Oxygen Delivery Room Air 09/02/24 12:45 Temperature 98.2 F 09/02/24 12:45 Pulse Rate 64 09/02/24 12:45 Respiratory Rate 18 09/02/24 12:45 Blood Pressure 133/73 09/02/24 12:45 Pulse Oximetry 100 09/02/24 12:45 Oxygen Delivery Room Air 09/02/24 12:45 Discharge Plan Discharge Clinical Impression: Eardrum rupture, right Patient Disposition: Home Condition: Stable Instructions: Antibiotic Form, Ruptured Eardrum (ED) Additional Instructions: as discussed this is likely a rupture of the right eardrum. Using antibiotics tract as directed to help heal this. Follow-up with primary care physician to evaluate this in 7-10 days, noted mainly to follow-up with ear nose and throat physician. Continue Mucinex, Sudafed, Flonase. Patient Language: Frisian Prescriptions: New ofloxacin 0.3 % drops 10 drp RIGHT EAR BID 14 Days Qty: 10 0RF No Action amlodipine 10 mg tablet 10 mg PO DAILY Qty: 90 3RF losartan 25 mg tablet 25 mg PO DAILY Qty: 90 3RF cyanocobalamin (vitamin B-12) 0.5 tab-cap BYMOUTH DAILY Follow-up/Referrals: Marisa Reich NP [Primary Care Provider] - Time of Disposition: 13:10
== END 2024-09-02 13:12 | disposition home or self-care (01) ==
PROVIDERS: Emergency Provider Nurse Practitioner Family; PCP Nurse Practitioner Family
DX: H72.91 Unspecified perforation of tympanic membrane, right ear (principal); I10 Essential (primary) hypertension; E78.5 Hyperlipidemia, unspecified
CPT/HCPCS: 99213; G0463

== ENCOUNTER 2024-10-30 06:45 | Outpatient (CLI) | payer MEDICARE, SELFPAY ==
--- NOTE | ~2024-10-30 | CT_ITS ---
CT ANGIOGRAM NECK AND HEAD History: Vertebrobasilar artery syndrome. Technique: Axial noncontrast imaging of the brain was performed. Serial spiral axial images through t he head and neck were and obtained during arterial phase IV injection of 100 cc of Omnipaque 350. 3-D postprocessing and MIP images were then reconstructed on the remote workstation. Dose reduction tech nique was used on this scan by utilizing automated exposure control and iterative reconstruction tech nique. The dose-length product (DLP) was 1833.85 mGy-cm. CTA neck findings: Bilateral vertebral arteries are patent. Right vertebral artery is somewhat hypop lastic relative to the left. Bilateral common carotid, internal carotid, and external carotid arterie s are widely patent. No large vessel occlusion or stenosis. No aneurysm. There is a probable thin latia ear area in the proximal right internal carotid artery suggestive of subtle carotid web (series [id number]). The proximal right internal carotid artery demonstrates 0% stenosis relative to the normal d istal artery lumen diameter. The proximal left internal carotid artery demonstrates 0% stenosis relat iraida to the normal distal artery lumen diameter. 2.3 cm low-density right thyroid nodule incidentally noted. CTA head findings: Distal vertebral arteries, basilar artery, and posterior cerebral arteries are pat ent. Distal internal carotid arteries, middle cerebral arteries, and anterior cerebral arteries are p atent. Posterior cerebral arteries are predominantly fed via posterior communicating arteries. No lar ge vessel occlusion or stenosis. No aneurysm. Axial noncontrast imaging of the brain is unremarkable. No evidence for acute infarct, intracranial h emorrhage, or mass lesion. No mass effect or midline shift. Roca-white differentiation intact. Ventri cles and subarachnoid spaces are unremarkable. Paranasal sinuses and mastoid air cells are clear. Ayo varium intact. Impression: Posterior cerebral arteries are predominantly fed via posterior communicating arteries, with relative ly low caliber basilar artery. 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 Reviewed, dictated and finalized at location M. Impression: Posterior cerebral arteries are predominantly fed via posterior communicating a rteries, with relatively low caliber basilar artery. 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
--- OUTSIDE RECORDS SUMMARY | 2024-10-30 06:48 | XMS_ITS | Clinical Summary ---
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
[2024-10-30 07:10] LABS: Estimated Glomerular Filt Rate > 60
== END 2024-10-30 06:46 | disposition home or self-care (01) ==
PROVIDERS: PCP Nurse Practitioner Family; Visit Provider Psychiatry & Neurology Neurology
DX: G45.0 Vertebro-basilar artery syndrome (principal); I10 Essential (primary) hypertension
CPT/HCPCS: 70496; 70498; Q9967

== ENCOUNTER 2024-12-18 07:15 | Outpatient (CLI) | payer MEDICARE, SELFPAY ==
[2024-12-18 07:55] LABS: Hematocrit 42.0 % (42.0-52.0); Hemoglobin 14.0 g/dL (14.0-18.0); Immature Granulocyte Percent A 0.2 % (0-0.5); Lymphocytes Absolute Auto 2.24 K/mm3 (0.9-3.2); Mean Corpuscular HGB Conc 33.3 g/dl (32-36); Mean Corpuscular Hemoglobin 29.8 pg (26-34); Mean Corpuscular Volume 89.4 fl (80-100); Nucleated Red Blood Cells Absolute Auto 0.000 K/mm3 (0.0-0.012); Nucleated Red Blood Cells Perc 0.0 % (0.0-0.2); Platelet Count Result 304 k/mm3 (150-375); Red Blood Count 4.70 M/mm3 (4.6-6.20); White Blood Count 6.4 K/mm3 (4.5-10.0)
[2024-12-18 08:01] LABS: Add Urine Microscopic? YES; Appearance Urine Clear (Clear); Glucose Urine UA Negative (Negative); Leukocyte Esterase Ur Trace LEU/UL (Negative); Nitrate Urine Negative (Negative); Non Pathogenic Casts 0-2; Specific Grav Ur 1.017 (1.001-1.035)
[2024-12-18 08:15] LABS: Alanine Aminotransferase 15 U/L (6-50); Albumin Level 4.5 g/dL (3.5-5.1); Alkaline Phosphatase 50 U/L (38-126); Anion Gap 7 mmol/L (4-12); Aspartate Amino Transferase 28 U/L (17-59); Bilirubin,Total 0.8 mg/dL (0.2-1.3); Blood Urea Nitrogen 13 mg/dL (9-20); Calcium 9.1 mg/dL (8.4-10.2); Carbon Dioxide 28 mmol/L (22-30); Chloride 104 mmol/L (98-107); Cholesterol 189 mg/dL (0-200); Estimated Glomerular Filt Rate > 60; Glucose 97 mg/dL (65-110); HDL Direct 59 mg/dL; Potassium 4.0 mmol/L (3.4-5.0); Sodium 139 mmol/L (137-145); Total Protein 7.5 g/dL (6.3-8.2); Triglycerides 100 mg/dL (<150)
[2024-12-18 08:17] LABS: Iron 110 ug/dL (49-181)
[2024-12-18 08:32] LABS: Percent Iron Saturation 34 % (20-50)
[2024-12-18 08:50] LABS: Prostate Specific Antigen 1.6 ng/mL (< OR = 4.0)
[2024-12-18 08:54] LABS: Thyroid Stimulating Hormone Reflex 2.360 uIU/mL (0.465-4.68)
[2024-12-18 08:58] LABS: Ferritin 99.90 ng/mL (11.1-264)
[2024-12-18 09:09] LABS: Vitamin B12 796.0 pg/mL (239-931)
== END 2024-12-18 07:16 | disposition home or self-care (01) ==
PROVIDERS: PCP Nurse Practitioner Family; Visit Provider Nurse Practitioner Family
DX: D64.9 Anemia, unspecified (principal); E78.5 Hyperlipidemia, unspecified; Z12.5 Encounter for screening for malignant neoplasm of prostate; E53.8 Deficiency of other specified B group vitamins; I10 Essential (primary) hypertension
CPT/HCPCS: 36415; 80053; 80061; 81001; 82607; 82728; 83540; 83550; 84153; 84443; 85025; G0103

== ENCOUNTER 2025-01-04 08:25 | Outpatient (CLI) | payer MEDICARE, SELFPAY ==
--- NOTE | 2025-01-04 08:31 | EST_ITS ---
Patient Info Name: Yahir Wei Age: 69 years : 1955 Gender: Male Ht: 66 in Wt: 165 lbs BSA: 1.88 m2 HR: 49 bpm BP: 132 / 71 mmHg Exam Date: 01/04/2025 8:31 AM Patient Status: O Admit Date: 01/04/2025 Exam Type: CA stress test treadmill A treadmill exercise stress test was performed. Staff Attending Provider: Marisa Reich Exercise Technologist: Annmarie Valente Exercise Physician: Kj Killian DO Summary 1. 1. Negative Osvaldo exercise stress test for ischemic ST changes by ECG criteria. 2. 2. Good functional capacity, achieving 11.8 METs of workload. 3. 3. Hypertensive response to exercise. 4. 4. Appropriate HR response to exercise. 5. 5. Appropriate HR recovery at 1 minute post exercise. 6. 6. No imaging with stress testing. 7. 7. Patient informed of the above results. Protocol: Osvaldo Stress ECG Details Stage: REST Duration (min): 1 min : 3 sec Speed (mph): 0.0 Grade (%): 0 HR (bpm): 51 SBP (mmHg): 132 DBP (mmHg): 71 METS: --- Stage: REST Duration (min): 12 min : 11 sec Speed (mph): 0.0 Grade (%): 0 HR (bpm): 61 SBP (mmHg): 132 DBP (mmHg): 71 METS: --- Stage: STAGE 1 Duration (min): 1 min : 0 sec Speed (mph): 1.7 Grade (%): 10 HR (bpm): 85 SBP (mmHg): 132 DBP (mmHg): 71 METS: --- Stage: STAGE 1 Duration (min): 2 min : 0 sec Speed (mph): 1.7 Grade (%): 10 HR (bpm): 88 SBP (mmHg): 132 DBP (mmHg): 71 METS: --- Stage: STAGE 1 Duration (min): 3 min : 0 sec Speed (mph): 1.7 Grade (%): 10 HR (bpm): 99 SBP (mmHg): 169 DBP (mmHg): 59 METS: --- Stage: STAGE 2 Duration (min): 1 min : 0 sec Speed (mph): 2.5 Grade (%): 12 HR (bpm): 100 SBP (mmHg): 169 DBP (mmHg): 59 METS: --- Stage: STAGE 2 Duration (min): 2 min : 0 sec Speed (mph): 2.5 Grade (%): 12 HR (bpm): 101 SBP (mmHg): 175 DBP (mmHg): 60 METS: --- Stage: STAGE 2 Duration (min): 3 min : 0 sec Speed (mph): 2.5 Grade (%): 12 HR (bpm): 103 SBP (mmHg): 175 DBP (mmHg): 60 METS: --- Stage: STAGE 3 Duration (min): 1 min : 0 sec Speed (mph): 3.4 Grade (%): 14 HR (bpm): 110 SBP (mmHg): 186 DBP (mmHg): 57 METS: --- Stage: STAGE 3 Duration (min): 2 min : 0 sec Speed (mph): 3.4 Grade (%): 14 HR (bpm): 111 SBP (mmHg): 186 DBP (mmHg): 57 METS: --- Stage: STAGE 3 Duration (min): 3 min : 0 sec Speed (mph): 3.4 Grade (%): 14 HR (bpm): 116 SBP (mmHg): 218 DBP (mmHg): 72 METS: --- Stage: STAGE 4 Duration (min): 0 min : 55 sec Speed (mph): 4.2 Grade (%): 16 HR (bpm): 128 SBP (mmHg): 218 DBP (mmHg): 72 METS: --- Stage: RECOVERY Duration (min): 0 min : 4 sec Speed (mph): 1.5 Grade (%): 0 HR (bpm): 130 SBP (mmHg): 218 DBP (mmHg): 72 METS: --- Stage: RECOVERY Duration (min): 1 min : 4 sec Speed (mph): 0.0 Grade (%): 0 HR (bpm): 97 SBP (mmHg): 218 DBP (mmHg): 72 METS: --- Stage: RECOVERY Duration (min): 2 min : 4 sec Speed (mph): 0.0 Grade (%): 0 HR (bpm): 82 SBP (mmHg): 218 DBP (mmHg): 72 METS: --- Stage: RECOVERY Duration (min): 3 min : 4 sec Speed (mph): 0.0 Grade (%): 0 HR (bpm): 73 SBP (mmHg): 153 DBP (mmHg): 78 METS: --- Stage: RECOVERY Duration (min): 4 min : 4 sec Speed (mph): 0.0 Grade (%): 0 HR (bpm): 76 SBP (mmHg): 153 DBP (mmHg): 78 METS: --- Stage: RECOVERY Duration (min): 5 min : 4 sec Speed (mph): 0.0 Grade (%): 0 HR (bpm): 64 SBP (mmHg): 149 DBP (mmHg): 76 METS: --- Stage: RECOVERY Duration (min): 5 min : 6 sec Speed (mph): 0.0 Grade (%): 0 HR (bpm): 63 SBP (mmHg): 149 DBP (mmHg): 76 METS: --- Rest HR: 61 bpm Peak HR: 130 bpm Rest Sys BP: 132 mmHg Peak Sys BP: 218 mmHg Max Pred HR: 150 bpm % Max Pred HR: 87 % Target HR: 128 bpm Max RPP: 28,340 bpm*mmHg Ahn Score: -0 BP Response: Patient exhibited a hypertensive response with stress Termination Reason: Reached target heart rate or workload Cardiac Symptoms: Shortness of breath Max ST Seg Deviation: -2.00 mm Total Time: 9 min : 55 sec Rest Fay BP: 71 mmHg Peak Fay BP: 72 mmHg Angina Score: None Total METS: 11.8 Resting ECG Sinus rhythm. Stress ECG No ST changes. Arrhythmias None. Report Signatures
--- OUTSIDE RECORDS SUMMARY | 2025-01-04 08:35 | XMS_ITS | Clinical Summary ---
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 Gender Identity Not on file Sexual Orientation Not on file Plan of Treatment Health Maintenance Due Date Last Done Comments Colorectal Cancer Screening Colonoscopy (10 Years) 1955 Hepatitis C 1972 DTaP, Tdap and Td Vaccines ( 1 - Tdap) 1973 Pneumococcal Vaccine: 50+ Ye ars (1 of 1 - PCV) 2004 Zoster Vaccines (1 of 2) 2004 COVID-19 Vaccine (1 - 2023-2 5 season) 2024 RSV Immunization or 60+ Years (1 - 1-dose 75+ series) 2029 Meningococcal B Vaccine Aged Out No l onger eligible based on patient's age to complete this topic Meningococcal Vaccine Aged Out No monica peace eligible based on patient's age to complete this topic RSV Immunizations Under 20 Months Aged Out No longer eligible based on patient's age to complete this topic Insurance [employer] [facility] [employer] [facility]
== END 2025-01-04 08:26 | disposition home or self-care (01) ==
PROVIDERS: PCP Nurse Practitioner Family; Visit Provider Nurse Practitioner Family
DX: H53.9 Unspecified visual disturbance (principal); I10 Essential (primary) hypertension
CPT/HCPCS: 93017

== ENCOUNTER 2025-01-26 14:08 | Outpatient (CLI) | payer MEDICARE, SELFPAY ==
--- NOTE | ~2025-01-26 | US_ITS ---
EXAMINATION: US carotid duplex BI DATE: 01/26/2025 14:55 INDICATION: Visual disturbance TECHNIQUE: Grayscale, color Doppler, and pulsed Doppler images of the cervical carotid arteries were obtained. The degree of vessel stenosis is placed in one of the following categories: normal, <50%, 50-69%, >=70% but less than near- occlusion, near-occlusion, or total occlusion. Note that percent stenosis relative to normal distal artery lumen diameter is indirectly measured from velocity measurements as described by Gautam, et al. Radiology 2003; 229:340-346. Notes: Normal: Peak systolic velocity <125 centimeters/sec and no plaque <50%. Peak systolic velocity <125 (EDV <40; ICA/CCA PSV ratio <2.0; used these factors only a tandem lesions or low cardiac output or contralateral disease) 50-69 %: PSV 125-230 (EDV 40-100; ratio 2-4) >= 70% but less than near occlusion: PSV greater than 230 (EDV > 100; ratio> 4.0) Near Occlusion: PSV that is variable; markedly narrowed lumen Occlusion: Absent flow on color/spectral Doppler and no lumen on perez scale. COMPARISON: None. FINDINGS: RIGHT: The right common carotid artery (CCA) peak systolic velocity (PSV) is 115 cm/s. The right internal carotid artery (ICA) PSV is 95 cm/s. The right ICA end- diastolic velocity (EDV) is 20 cm/s. The right ICA/CCA PSV ratio is 0.8. The external carotid artery (ECA) PSV is 133 cm/s. There is antegrade flow in the right vertebral artery. LEFT: The left CCA PSV is 109 cm/s. The left ICA PSV is 83 cm/s. The left ICA EDV is 18 cm/s. The left ICA/CCA PSV ratio is 0.8. The ECA PSV is 142 cm/s. There is antegrade flow in the left vertebral artery. IMPRESSION: 1. Less than 50% stenosis in the right internal carotid artery by sonographic criteria. 2. Less than 50% stenosis in the left internal carotid artery by sonographic criteria. Reviewed, dictated and finalized at location [facility]. IMPRESSION: 1. Less than 50% stenosis in the right internal carotid artery by sonographic gucci ribeiro. 2. Less than 50% stenosis in the left internal carotid artery by sonographic zack gore.
--- OUTSIDE RECORDS SUMMARY | 2025-01-26 14:20 | XMS_ITS | Clinical Summary ---
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 Gender Identity Not on file Sexual Orientation Not on file Plan of Treatment Health Maintenance Due Date Last Done Comments Colorectal Cancer Screening Colonoscopy (10 Years) 1955 Hepatitis C 1972 DTaP, Tdap and Td Vaccines ( 1 - Tdap) 1973 Pneumococcal Vaccine: 50+ Ye ars (1 of 1 - PCV) 2004 Zoster Vaccines (1 of 2) 2004 COVID-19 Vaccine ( - 2024-2 6 season) 2024 Influenza Adult (#1) 2025 RSV Immunization or 60+ Years (1 - 1-dose 75+ series) 2029 Hepatitis A Vaccines Aged Out No long er eligible based on patient's age to complete this topic Meningococcal B Vaccine Aged Out No l onger eligible based on patient's age to complete this topic Meningococcal Vaccine Aged Out No monica peace eligible based on patient's age to complete this topic RSV Immunizations Under 20 Months Aged Out No longer eligible based on patient's age to complete this topic Insurance [employer] [facility] [employer] [facility]
== END 2025-01-26 14:09 | disposition home or self-care (01) ==
LOC: ANHIMG 14:17
PROVIDERS: PCP Nurse Practitioner Family; Visit Provider Psychiatry & Neurology Neurology
DX: I65.23 Occlusion and stenosis of bilateral carotid arteries (principal); H53.9 Unspecified visual disturbance
CPT/HCPCS: 93880